=== PATIENT | female | born 1955 | race Caucasian/White ===

== ENCOUNTER → 2020-07-20 | Outpatient (CLI) | payer MEDICARE, OTHER ==
--- NOTE | 2020-07-20 09:04 | FL ---
EXAMINATION TYPE: FL UGI air DATE OF EXAM: 07/20/2020 COMPARISON: NONE HISTORY: Abdominal bloating, worse after eating TECHNIQUE: A double contrast UGI study is performed. FINDINGS: The esophagus shows normal motility and emptying into the stomach. No evidence of stricture noted. N o hiatal hernia. The stomach shows normal distensibility, peristalsis, and mucosal folds. No evidence of any mass or ulcer disease. Moderate spontaneous gastroesophageal reflux was seen throughout performance of this s tudy. The duodenal bulb, sweep, and proximal small bowel loops are unremarkable. Total fluoroscopy time 2 minutes 9 seconds. Total images 25. IMPRESSION: 1. Moderate spontaneous gastroesophageal reflux. 2. No hiatal hernia.
--- NOTE | 2020-07-20 15:36 | NM ---
EXAMINATION TYPE: NM hepatobiliary w CCK DATE OF EXAM: 07/20/2020 COMPARISON: NONE HISTORY: Right upper quadrant pain TECHNIQUE: After the intravenous administration of 5.13 mCi Tc 99m Mebrofenin hepatobiliary scintigra phy is performed. Immediate images post injection. FINDINGS: There is satisfactory initial accumulation of tracer by the liver. The gallbladder is visualized wit hin 30 minutes. The small bowel activity is noted within 15 minutes. At one hour 8 ounces oral ensu re was administered and gallbladder ejection fraction is calculated at 91 %, above the upper limit of the normal range. Therefore there is no scintigraphic evidence of cystic or common bile duct obstru ction to suggest acute cholecystitis or gallbladder dyskinesia. IMPRESSION: Findings could represent hyperdynamic gallbladder.
== END | disposition home or self-care (01) ==
LOC: RADFLMAIN 07:54
PROVIDERS: ATTEND Family Medicine
DX: K21.9 Gastro-esophageal reflux disease without esophagitis (principal); R10.11 Right upper quadrant pain
CPT/HCPCS: 74246; 78226; A9537

== ENCOUNTER → 2020-09-03 | Outpatient (CLI) | payer MEDICARE, OTHER ==
--- NOTE | 2020-09-03 11:47 | CT ---
EXAMINATION TYPE: CT abdomen pelvis w con DATE OF EXAM: 09/03/2020 COMPARISON: None HISTORY: Diverticulitis CT DLP: 1463 mGycm CONTRAST: CT scan of the abdomen and pelvis is performed with Oral Contrast and with IV Contrast, patient injec angelika with 100 ml mL of Isovue 300. FINDINGS: LUNG BASES-: No visible nodule. No infiltrate. Tiny sliding-type hiatal hernia. LIVER/GB: No calcified gallstones. No space occupying hepatic lesion. Biliary tree is of normal ca liber. PANCREAS: No inflammation. No distinct mass. SPLEEN: No splenic enlargement. No lesion seen. ADRENALS: No nodule. No thickening. KIDNEYS/BLADDER: No hydronephrosis. No nephrolithiasis. No distinct renal mass. Urinary bladder g rossly unremarkable. BOWEL: Normal appendix. Normal bowel caliber. No inflammation. No evidence for diverticulitis. GENITAL ORGANS: Lobulated appearance of the uterus compatible with the underlying leiomyomatous olvera ge. No evidence for adnexal mass. LYMPH NODES: No greater than 1cm abdominal or pelvic lymph nodes are appreciated. AORTA: No significant abnormality. OSSEOUS STRUCTURES: No significant abnormality is seen. OTHER: No significant additional abnormality is seen. IMPRESSION: 1. No acute process seen. 2. Suspect leiomyomatous change of the uterus. This can be confirmed with ultrasound of the pelvis.
== END | disposition home or self-care (01) ==
LOC: RADCTMAIN 09:45
PROVIDERS: ATTEND Surgery Plastic and Reconstructive Surgery
DX: K57.92 Diverticulitis of intestine, part unspecified, without perforation or abscess without bleeding (principal)
CPT/HCPCS: 82565; 84520; 74177; 36415; Q9967

== ENCOUNTER 2020-09-19 08:26 | Day surgery (SDC) | payer MEDICARE, OTHER ==
[2020-09-17 09:14] VITALS: BMI 39.0
[~2020-09-19 08:26] MED LIST: LACTATED RINGERS 1,000 ML IV SCH
--- NOTE | 2020-09-19 08:43 | P.GSHP ---
History of Present Illness H&P Date: 09/19/20 CHIEF COMPLAINT: GERD HISTORY OF PRESENT ILLNESS: The patient is a 64-year-old female who presents reports gastroesophageal reflux disease. Upper endoscopy was offered for further evaluation and management. PAST MEDICAL HISTORY: Please see list. PAST SURGICAL HISTORY: Please see list. MEDICATIONS: Please see list. ALLERGIES: Please see list. SOCIAL HISTORY: No illicit drug use FAMILY HISTORY: No reports of Crohn disease or ulcerative colitis. REVIEW OF ORGAN SYSTEMS: CONSTITUTIONAL: No reports of fevers or chills. GI: Denies any blood in stools or constipation. PHYSICAL EXAM: VITAL SIGNS: Stable GENERAL: Well-developed and pleasant in no acute distress. HEENT: No scleral icterus. Extraocular movements grossly intact. Moist buccal mucosa. NECK: Supple without lymphadenopathy. CHEST: Unlabored respirations. Equal bilateral excursions. CARDIOVASCULAR: Regular rate and rhythm. Distal 2+ pulses. ABDOMEN: Soft, nondistended. MUSCULOSKELETAL: No clubbing, cyanosis, or edema. ASSESSMENT: 1. Gastroesophageal reflux disease PLAN: 1. Recommend proceeding with an upper endoscopy Past Medical History Additional Past Medical History / Comment(s): "STOMACH ISSUES" History of Any Multi-Drug Resistant Organisms: None Reported Past Surgical History: No Surgical Hx Reported Past Anesthesia/Blood Transfusion Reactions: No Reported Reaction Additional Past Anesthesia/Blood Transfusion Reaction / Comment(s): NO PRIOR ANESTHESIA Smoking Status: Never smoker - Past Family History Mother Family Medical History: No Reported History Medications and Allergies Home Medications Medication Instructions Recorded Confirmed Type No Known Home Medications 09/17/20 09/17/20 History Allergies Allergy/AdvReac Type Severity Reaction Status Date / Time No Known Allergies Allergy Verified 09/19/20 08:41
[2020-09-19 08:47] VITALS: RESP 16; TEMP 97.6
[2020-09-19] MEDS ORDERED: LIDOCAINE 1% (10MG/ML) FOR IV START INTRADERMA ONE (09:00)
[2020-09-19] MEDS ORDERED: LIDOCAINE 1% INJ 10MG/ML (20 ML MDV) ONE (09:21)
[2020-09-19] MEDS ORDERED: MIDAZOLAM 2 MG/2 ML VIAL ONE (09:21)
[2020-09-19] MEDS ORDERED: PROPOFOL 10 MG/ML 20 ML VIAL IV ONE (09:21)
--- NOTE | 2020-09-19 09:42 | P.PCN ---
Date of Procedure: 09/19/20 Description of Procedure: PREOPERATIVE DIAGNOSIS: Gastroesophageal reflux disease. Epigastric abdominal pain POSTOPERATIVE DIAGNOSIS: Gastroesophageal reflux disease. Epigastric abdominal pain Gastritis. OPERATION: Esophagogastroduodenoscopy with biopsies along antrum. SURGEON: Zoë Martinez MD ANESTHESIA: MAC. INDICATIONS: The patient is a 64-year-old female who presents with a history of reflux disease. Benefits and risks of the procedure were described. Informed consent was obtained. DESCRIPTION: The patient was brought into the endoscopy suite and laid in the left lateral decubitus position. An Olympus gastroscope was passed along the posterior oropharynx down to the distal esophagus where the squamocolumnar junction was encountered at 35 cm from the incisors. The stomach was entered and no bile reflux was found. Additional findings are listed below. Biopsies with cold forceps were obtained of the antrum. The first through third portion of the duodenum was examined and unremarkable. Retroflexion of the scope confirmed Hill grade 3 lower esophageal valve. The squamocolumnar junction demonstrated LA grade B erosive esophagitis. The stomach was desufflated. The patient tolerated the procedure well. FINDINGS: Squamocolumnar junction 35 cm from the incisors. Diaphragmatic hiatus at 35 cm. Hill grade 3 lower esophageal valve. LA grade B erosive esophagitis. No active duodenitis. Chronic gastritis, mild RECOMMENDATIONS: Upper endoscopy as needed. Trial omeprazole 20 mg daily Plan - Discharge Summary Discharge Rx Participant: No New Discharge Prescriptions: New Omeprazole [PriLOSEC] 20 mg PO DAILY #14 cap Continue Gabapentin [Neurontin] 1 tab PO BID Discharge Medication List Gabapentin [Neurontin] 1 tab PO BID 09/19/20 [History] Omeprazole [PriLOSEC] 20 mg PO DAILY #14 cap 09/19/20 [Rx] Follow up Appointment(s)/Referral(s): Zoë Martinez MD [STAFF PHYSICIAN] - 10/02/20 Patient Instructions/Handouts: Gastroesophageal Reflux Disease (ED) Discharge Disposition: HOME SELF-CARE
[2020-09-19 10:05] VITALS: BP 118/78; PULSE 63
== END 2020-09-19 10:35 | disposition home or self-care (01) ==
LOC: ORWHC2ENDO 08:26
PROVIDERS: ATTEND Surgery Plastic and Reconstructive Surgery
DX: K29.50 Unspecified chronic gastritis without bleeding (principal); K22.10 Ulcer of esophagus without bleeding; Z79.899 Other long term (current) drug therapy; Z97.2 Presence of dental prosthetic device (complete) (partial)
CPT/HCPCS: 88305; 43239; J2250; J2704; J2001

== ENCOUNTER 2021-07-27 14:32 | Inpatient (IN) | payer MEDICARE, OTHER ==
[2021-07-27] MEDS ORDERED: PANTOPRAZOLE 40 MG/10 ML VIAL IVP STA (16:18)
[2021-07-27] MEDS ORDERED: SODIUM CHLORIDE 0.9% 1,000 ML IV STA (16:18)
[2021-07-27] MEDS ORDERED: MORPHINE SULFATE 4 MG/ML SYRINGE IV STA (16:18)
[2021-07-27] MEDS ORDERED: ONDANSETRON 4 MG/2 ML VIAL IVP STA (16:18)
--- NOTE | 2021-07-27 16:24 | ED ---
General Adult HPI - General Chief complaint: GI Bleed Stated complaint: Abd Pain Time Seen by Provider: 07/27/21 16:07 Source: patient Mode of arrival: ambulatory Limitations: no limitations - History of Present Illness Initial comments: 65-year-old female without any significant past medical history presents to the emergency room for severe abdominal pain. Patient reports she has had abdominal pain for weeks now. States it is all over her abdomen. Patient states she hasn't had a few episodes of dark bloody bowel movements. She also has diarrhea . Patient also has had some vomiting that she believes may have been streaked with blood. She did try to call her PCP and they recommended she come to the emergency room as they could not get her in until a couple weeks from now. Patient has not had fevers or chills.Patient has no other complaints at this time including shortness of breath, chest pain, headache, or visual changes. - Related Data Home Medications Medication Instructions Recorded Confirmed No Known Home Medications 07/27/21 07/27/21 Allergies Allergy/AdvReac Type Severity Reaction Status Date / Time No Known Allergies Allergy Verified 07/27/21 18:50 Review of Systems ROS Statement: Those systems with pertinent positive or pertinent negative responses have been documented in the HPI. ROS Other: All systems not noted in ROS Statement are negative. Past Medical History Past Medical History: No Reported History History of Any Multi-Drug Resistant Organisms: None Reported Past Surgical History: No Surgical Hx Reported Past Psychological History: No Psychological Hx Reported Smoking Status: Never smoker Past Alcohol Use History: None Reported Past Drug Use History: None Reported General Exam Limitations: no limitations General appearance: alert, in no apparent distress Head exam: Present: atraumatic Eye exam: Present: normal appearance, PERRL, EOMI. Absent: scleral icterus, conjunctival injection ENT exam: Present: normal exam, mucous membranes moist Neck exam: Present: normal inspection, full ROM. Absent: tenderness Respiratory exam: Present: normal lung sounds bilaterally. Absent: respiratory distress, wheezes Cardiovascular Exam: Present: regular rate, normal rhythm, normal heart sounds GI/Abdominal exam: Present: soft, tenderness (generalized abdominal tenderness), normal bowel sounds. Absent: distended Neurological exam: Present: alert Course Vital Signs 07/27/21 07/27/21 07/27/21 14:36 15:43 18:00 Temperature 97.8 F Pulse Rate 104 H 89 84 Respiratory 22 18 16 Rate Blood Pressure 141/91 147/99 152/88 O2 Sat by Pulse 97 95 97 Oximetry Medical Decision Making - Medical Decision Making Vitals are stable. Patient is well-appearing. Physical exam does reveal mild generalized abdominal tenderness. CBC does reveal leukocytosis of 15.4. Hemoconcentration is noted. CMP did reveal acute kidney injury likely from dehydration as she has not been eating or drinking with this abdominal pain for the past few weeks. She also has evidence of urinary tract infection. Was s tarted on Rocephin. CT abdomen and pelvis did reveal dilated endometrial cavity that appears new compared to the old exam, tumor is possible. I did discuss this case with Dr. Boggs who is on-call for [employer]. He does recommend ultrasound but states this would be better followed up outpatient. He states getting the ultrasound tomorrow after getting some antibiotics might be best for patient. She will otherwise be admitted to medicine for SARAH, UTI, abdominal pain. Dr. Fraser did request consultation to Dr. Boggs. He also requested doing an ultrasound tomorrow of the kidney ureter bladder. - Lab Data Result diagrams: 07/27/21 16:19 07/27/21 16:19 Lab Results 07/27/21 07/27/21 07/27/21 Range/Units 16:19 16:19 16:19 WBC 15.4 H (3.8-10.6) k/uL RBC 5.97 H (3.80-5.40) m/uL Hgb 16.6 H (11.4-16.0) gm/dL Hct 50.3 H (34.0-46.0) % MCV 84.3 (80.0-100.0) fL MCH 27.7 (25.0-35.0) pg MCHC 32.9 (31.0-37.0) g/dL RDW 13.5 (11.5-15.5) % Plt Count 477 H (150-450) k/uL MPV 7.2 Neutrophils % 80 % Lymphocytes % 13 % Monocytes % 6 % Eosinophils % 0 % Basophils % 0 % Neutrophils # 12.3 H (1.3-7.7) k/uL Lymphocytes # 2.0 (1.0-4.8) k/uL Monocytes # 0.9 (0-1.0) k/uL Eosinophils # 0.1 (0-0.7) k/uL Basophils # 0.1 (0-0.2) k/uL Sodium 137 (137-145) mmol/L Potassium 4.2 (3.5-5.1) mmol/L Chloride 90 L (98-107) mmol/L Carbon Dioxide 23 (22-30) mmol/L Anion Gap 24 mmol/L BUN 78 H (7-17) mg/dL Creatinine 2.79 H (0.52-1.04) mg/dL Est GFR (CKD-EPI)AfAm 20 (>60 ml/min/1.73 sqM) Est GFR (CKD-EPI)NonAf 17 (>60 ml/min/1.73 sqM) Glucose 120 H (74-99) mg/dL Plasma Lactic Acid Ronald 2.0 (0.7-2.0) mmol/L Calcium 10.6 H (8.4-10.2) mg/dL Total Bilirubin 0.8 (0.2-1.3) mg/dL AST 32 (14-36) U/L ALT 24 (4-34) U/L Alkaline Phosphatase 139 H (38-126) U/L Total Protein 9.0 H (6.3-8.2) g/dL Albumin 5.1 H (3.5-5.0) g/dL Amylase 72 (30-110) U/L Lipase 179 (23-300) U/L Urine Color Urine Appearance (Clear) Urine pH (5.0-8.0) Ur Specific [place] (1.001-1.035) Urine Protein (Negative) Urine Glucose (UA) (Negative) Urine Ketones (Negative) Urine Blood (Negative) Urine Nitrite (Negative) Urine Bilirubin (Negative) Urine Urobilinogen (<2.0) mg/dL Ur Leukocyte Esterase (Negative) Urine RBC (0-5) /hpf Urine WBC (0-5) /hpf Urine WBC Clumps (None) /hpf Ur Squamous Epith Cells (0-4) /hpf Hyaline Casts (0-2) /lpf Urine Mucus (None) /hpf Ur Yeast w Hyphae (None) /hpf Urine Yeast (Budding) (None) /hpf Stool Occult Blood (Negative) Coronavirus (PCR) (Not Detectd) 07/27/21 07/27/21 07/27/21 Range/Units 16:33 17:17 18:00 WBC (3.8-10.6) k/uL RBC (3.80-5.40) m/uL Hgb (11.4-16.0) gm/dL Hct (34.0-46.0) % MCV (80.0-100.0) fL MCH (25.0-35.0) pg MCHC (31.0-37.0) g/dL RDW (11.5-15.5) % Plt Count (150-450) k/uL MPV Neutrophils % % Lymphocytes % % Monocytes % % Eosinophils % % Basophils % % Neutrophils # (1.3-7.7) k/uL Lymphocytes # (1.0-4.8) k/uL Monocytes # (0-1.0) k/uL Eosinophils # (0-0.7) k/uL Basophils # (0-0.2) k/uL Sodium (137-145) mmol/L Potassium (3.5-5.1) mmol/L Chloride (98-107) mmol/L Carbon Dioxide (22-30) mmol/L Anion Gap mmol/L BUN (7-17) mg/dL Creatinine (0.52-1.04) mg/dL Est GFR (CKD-EPI)AfAm (>60 ml/min/1.73 sqM) Est GFR (CKD-EPI)NonAf (>60 ml/min/1.73 sqM) Glucose (74-99) mg/dL Plasma Lactic Acid Ronald (0.7-2.0) mmol/L Calcium (8.4-10.2) mg/dL Total Bilirubin (0.2-1.3) mg/dL AST (14-36) U/L ALT (4-34) U/L Alkaline Phosphatase (38-126) U/L Total Protein (6.3-8.2) g/dL Albumin (3.5-5.0) g/dL Amylase (30-110) U/L Lipase (23-300) U/L Urine Color Yellow Urine Appearance Cloudy H (Clear) Urine pH 5.0 (5.0-8.0) Ur Specific [place] 1.017 (1.001-1.035) Urine Protein 1+ H (Negative) Urine Glucose (UA) Negative (Negative) Urine Ketones 1+ H (Negative) Urine Blood Large H (Negative) Urine Nitrite Negative (Negative) Urine Bilirubin 1+ H (Negative) Urine Urobilinogen 2.0 (<2.0) mg/dL Ur Leukocyte Esterase Large H (Negative) Urine RBC 91 H (0-5) /hpf Urine WBC >182 H (0-5) /hpf Urine WBC Clumps Moderate H (None) /hpf Ur Squamous Epith Cells 3 (0-4) /hpf Hyaline Casts 371 H (0-2) /lpf Urine Mucus Many H (None) /hpf Ur Yeast w Hyphae Few (None) /hpf Urine Yeast (Budding) Occasional H (None) /hpf Stool Occult Blood Negative (Negative) Coronavirus (PCR) Not Detected (Not Detectd) Disposition Clinical Impression: Leukocytosis, UTI (urinary tract infection), Abdominal pain, SARAH (acute kidney injury) Disposition: ADMITTED IP TO THIS HOSP Is patient prescribed a controlled substance at d/c from ED?: No Referrals: Elijah Rivera DO [Primary Care Provider] - 1-2 days Time of Disposition: 19:00
[2021-07-27 16:42] LABS: Albumin 5.1 g/dL (3.5-5.0); Calcium 10.6 mg/dL (8.4-10.2); Potassium 4.2 mmol/L (3.5-5.1); Total Bilirubin 0.8 mg/dL (0.2-1.3)
[2021-07-27 16:48] LABS: Basophils # (A) 0.1 k/uL (0-0.2); Basophils % (A) 0 %; Eosinophils # (A) 0.1 k/uL (0-0.7); Eosinophils % (A) 0 %; HCT 50.3 % (34.0-46.0); HGB 16.6 gm/dL (11.4-16.0); Lymphocytes % (A) 13 %; MCH 27.7 pg (25.0-35.0); MCHC 32.9 g/dL (31.0-37.0); MCV 84.3 fL (80.0-100.0); Mean Platelet Volume 7.2; Monocytes # (A) 0.9 k/uL (0-1.0); Monocytes % (A) 6 %; Neutrophils # (A) 12.3 k/uL (1.3-7.7); Neutrophils % (A) 80 %; Platelet Count 477 k/uL (150-450); RBC 5.97 m/uL (3.80-5.40); RDW 13.5 % (11.5-15.5); WBC 15.4 k/uL (3.8-10.6)
[2021-07-27 16:52] LABS: Appearance,Urine Cloudy (Clear); Bilirubin,Urine 1+ (Negative); Blood,Urine Large (Negative); Budding Yeast,Urine Occasional /hpf; Color,Urine Yellow; Glucose,Urine (UA) Negative (Negative); Hyaline Casts,Urine 371 /lpf (0-2); Hyphae Yeast, Urine Few /hpf; Ketones,Urine 1+ (Negative); Leukocyte Esterase,Urine Large (Negative); Mucus,Urine Many /hpf; Nitrite,Urine Negative (Negative); Protein,Urine 1+ (Negative); RBC,Urine 91 /hpf (0-5); Specific Gravity,Urine 1.017 (1.001-1.035); Squamous Epithelial Cell,Urine 3 /hpf (0-4); WBC,Urine >182 /hpf (0-5)
--- NOTE | 2021-07-27 17:32 | CT ---
EXAMINATION TYPE: CT abdomen pelvis wo con DATE OF EXAM: 07/27/2021 COMPARISON: 09/03/2020 HISTORY: Abdominal pain. No contrast. GFR 17 CT DLP: 591 mGycm Automated exposure control for dose reduction was used. Images obtained from the diaphragm to the floor the pelvis with no contrast. Lung bases are clear. There is no pleural effusion. Heart size is normal. There is no pericardial eff usion. Liver spleen stomach pancreas appear intact. The bile ducts are nondilated. Gallbladder is lar ge and measures 4.4 cm in diameter. There is no adrenal mass. Kidneys have normal size. There is no hydronephrosis. There is no retroperi toneal adenopathy. There is no inguinal hernia. There is no free fluid in the pelvis. There is irregu lar enlargement of the uterus. There is apparent 4.5 cm uterine fundal fibroid. There is low attenuat ion in the large area of the body of the uterus. It is suggestive of dilated endometrial cavity. Blad aurelia distends smoothly. Appendix is posterior and appears normal. Lumbar vertebra have normal alignment. Posterior elements are intact. There is no compression fractur e. Bony pelvis is intact. The hip joints are intact. IMPRESSION: There is dilated endometrial cavity that appears new compared to old exam. Tumor is possible. Follow- up is recommended. Ultrasound would be helpful for further evaluation. Uterine fundal fibroid unchang ed compared to old exam. Large gallbladder appears increased compared to old exam. This is suggestive of gallbladder dysfunction.
[2021-07-27] MEDS ORDERED: cefTRIAXone IN SWFI 1,000 MG/10 ML SYRINGE IVP STA (18:11)
[2021-07-27] MEDS ORDERED: NALOXONE 0.4 MG/ML 1 ML VIAL IV PRN (19:00)
[2021-07-27] MEDS: SODIUM CHLORIDE 0.9% 1,000 ML IV SCH (19:00)
[2021-07-27] MEDS ORDERED: ONDANSETRON 4 MG/2 ML VIAL IVP PRN (19:00)
[2021-07-27] MEDS: MORPHINE SULFATE 4 MG/ML SYRINGE IV PRN (19:16)
[2021-07-28] MEDS: MORPHINE SULFATE 4 MG/ML SYRINGE IV PRN ×3 (00:09→14:12)
[2021-07-28] MEDS: SODIUM CHLORIDE 0.9% 1,000 ML IV SCH ×3 (04:12→18:25)
[2021-07-28] MEDS ORDERED: cefTRIAXone IN SWFI 1,000 MG/10 ML SYRINGE IVP SCH (09:00)
--- NOTE | 2021-07-28 11:42 | P.OBCN ---
History of Present Illness Consult date: 07/28/21 Reason for consult: other (Vaginal bleeding, thickened endometrium) Chief complaint: Abdominal pain History of present illness: The patient is a 65-year-old 1 para 1001 who presented to the emergency room yesterday with complaint of approximately 3 weeks of primarily upper abdominal pain which has now spread to breast-feed her abdomen is well. She also reports having had several weeks to a month's worth of bleeding either from the vagina or the rectum though she is uncertain which. In the emergency room, she was found to have renal dysfunction and ultrasound demonstrates abnormal findings of the gallbladder. She additionally was found to have what appears to be a fairly significant bladder infection. Computed tomography scan and subsequent ultrasound of also demonstrated a significantly thickened endometrial cavity measuring approximate 5 cm in thickness. This is a change from previous documentation by computed tomography scan done in the past. The patient denies any significant weight loss or weight gain. She has never used hormone replacement nor oral contraceptive pills since the time of menopause at approximately age 48. This is the first episode of bleeding that she's had since that time though, again, she is uncertain as to whether it is vaginal or rectal. Obstetrical history: 1 para 101 with 1 term vaginal delivery without complications. Gynecologic history: Unremarkable with no history of any infections. She does report that she has had relatively regular gynecologic care though not recently. She could not be more specific than to say through [facility]. Review of Systems Review of systems is confined to history of present illness. Past Medical History Past Medical History: No Reported History History of Any Multi-Drug Resistant Organisms: None Reported Past Surgical History: No Surgical Hx Reported Past Psychological History: No Psychological Hx Reported Smoking Status: Never smoker Past Alcohol Use History: None Reported Past Drug Use History: None Reported - Past Family History Father Family Medical History: Unable to Obtain Mother Family Medical History: No Reported History Medications and Allergies Home Medications Medication Instructions Recorded Confirmed Type No Known Home Medications 07/27/21 07/27/21 History Allergies Allergy/AdvReac Type Severity Reaction Status Date / Time No Known Allergies Allergy Verified 07/27/21 18:50 Exam Vital Signs Temp Pulse Pulse Resp BP BP Pulse Ox 07/28/21 07:00 98.2 F 64 17 124/68 97 07/28/21 04:55 97.7 F 64 18 111/68 98 07/28/21 04:15 64 18 123/61 96 07/27/21 22:00 78 18 132/64 97 07/27/21 18:00 84 16 152/88 97 07/27/21 15:43 89 18 147/99 95 07/27/21 14:36 97.8 F 104 H 22 141/91 97 Intake and Output 07/27/21 07/28/21 07/28/21 22:59 06:59 14:59 Other: Voiding Method Toilet # Voids 0 Weight 80.15 kg In general, this is a well-developed, well-nourished white female in no acute distress. She does appear to be slightly confused. Her heart has a regular rhythm and rate without murmur. Her lungs are clear to auscultation bilaterally in all young. Her abdomen is nondistended, soft, with mild diffuse tenderness more significant in the upper quadrants than the lower. There is no guarding or rebound present. The patient declines bimanual pelvic examination this time secondary to discomfort with previous exam and on transvaginal pelvic ultrasound. I will return at another time to attempt to perform a pelvic examination as it would be beneficial to at least see if the blood is vaginal in origin. Results Result Diagrams: 07/27/21 16:19 07/27/21 16:19 Abnormal Lab Results - Last 24 Hours (Table) 07/27/21 07/27/21 07/27/21 Range/Units 16:19 16:19 16:33 WBC 15.4 H (3.8-10.6) k/uL RBC 5.97 H (3.80-5.40) m/uL Hgb 16.6 H (11.4-16.0) gm/dL Hct 50.3 H (34.0-46.0) % Plt Count 477 H (150-450) k/uL Neutrophils # 12.3 H (1.3-7.7) k/uL Chloride 90 L (98-107) mmol/L BUN 78 H (7-17) mg/dL Creatinine 2.79 H (0.52-1.04) mg/dL Glucose 120 H (74-99) mg/dL Calcium 10.6 H (8.4-10.2) mg/dL Alkaline Phosphatase 139 H (38-126) U/L Total Protein 9.0 H (6.3-8.2) g/dL Albumin 5.1 H (3.5-5.0) g/dL Urine Appearance Cloudy H (Clear) Urine Protein 1+ H (Negative) Urine Ketones 1+ H (Negative) Urine Blood Large H (Negative) Urine Bilirubin 1+ H (Negative) Ur Leukocyte Esterase Large H (Negative) Urine RBC 91 H (0-5) /hpf Urine WBC >182 H (0-5) /hpf Urine WBC Clumps Moderate H (None) /hpf Hyaline Casts 371 H (0-2) /lpf Urine Mucus Many H (None) /hpf Urine Yeast (Budding) Occasional H (None) /hpf Assessment and Plan (1) Postmenopausal bleeding Current Visit: Yes Status: Acute Code(s): N95.0 - POSTMENOPAUSAL BLEEDING SNOMED Code(s): 95417900 (2) Thickened endometrium Current Visit: Yes Status: Acute Code(s): R93.89 - ABNORMAL FINDINGS ON DX IMAGING OF OTH BODY STRUCTURES SNOMED Code(s): 283232857 Plan: The endometrial findings warrant evaluation with biopsy. This is most easily carried out in the outpatient office setting. As the patient appears entirely hemodynamically stable, I would recommend having her follow up in my office following discharge for further disposition. Given some of her other ongoing medical concerns, I would currently not recommend proceeding with D&C at this time. If, however, she required surgical evaluation for other reasons such as acute ongoing gallbladder issues, then D&C could be performed under the same anesthetic. Thank you for the consult and I will continue to follow at a distance unless surgical intervention becomes necessary.
--- NOTE | 2021-07-28 12:46 | P.GSCN ---
History of Present Illness Consult date: 07/28/21 Reason for Consult: Abdominal pain, dilated gallbladder on CT History of present illness: The patient is a 65-year-old female who has had about a 1 month history of generalized abdominal pain. She does not feel like eating. Loss of appetite. Occasionally has had some vomiting recently. Denies fevers or chills. She is also began having vaginal bleeding. The last week symptoms have gotten worse and she called her primary care who sent her to the ER. No fevers or chills. No jaundice, acholic stool, tea colored urine. No prior gallbladder attacks. Will have some constipation. Then bowels do move she will have significant large bowel movements with large volumes throughout the day. Bowel movements are soft. Reviewing reports from [facility] she had a Pap smear in May 2020 which was negative. June 2020 she had stool studies due to diarrhea it was Hemoccult negative, C. difficile negative and cultures were negative. Last colonoscopy was done by Dr. Hernandez in 2013. February 2020 she had a gallbladder ultrasound showing no stones and a possible polyp. HIDA scan was done in July 2020 showing 91% ejection fraction. She also had a EGD done in September 2020 showing some GERD Review of Systems All systems: negative Past Medical History Past Medical History: No Reported History History of Any Multi-Drug Resistant Organisms: None Reported Past Surgical History: No Surgical Hx Reported Past Psychological History: No Psychological Hx Reported Smoking Status: Never smoker Past Alcohol Use History: None Reported Past Drug Use History: None Reported - Past Family History Father Family Medical History: Unable to Obtain Mother Family Medical History: No Reported History Medications and Allergies Home Medications Medication Instructions Recorded Confirmed Type No Known Home Medications 07/27/21 07/27/21 History Allergies Allergy/AdvReac Type Severity Reaction Status Date / Time No Known Allergies Allergy Verified 07/27/21 18:50 Surgical - Exam Osteopathic Statement: *. No significant issues noted on an osteopathic structural exam other than those noted in the History and Physical/Consult. Vital Signs Temp Pulse Resp BP Pulse Ox 97.8 F 104 H 22 141/91 97 07/27/21 14:36 07/27/21 14:36 07/27/21 14:36 07/27/21 14:36 07/27/21 14:36 - General well developed, well nourished - Eyes normal ocular movement - Neck trachea midline - Respiratory normal respiratory effort, clear to auscultation - Cardiovascular Rhythm: regular - Abdomen Abdomen: soft, tender (mild diffuse), no guarding, no rigid, no rebound Hernia: no umbilical - Psychiatric oriented to time, oriented to person, oriented to place, speech is normal, memory intact Results - Labs 07/27/21 16:19 07/27/21 16:19 Abnormal Lab Results - Last 24 Hours (Table) 07/27/21 07/27/21 07/27/21 Range/Units 16:19 16:19 16:33 WBC 15.4 H (3.8-10.6) k/uL RBC 5.97 H (3.80-5.40) m/uL Hgb 16.6 H (11.4-16.0) gm/dL Hct 50.3 H (34.0-46.0) % Plt Count 477 H (150-450) k/uL Neutrophils # 12.3 H (1.3-7.7) k/uL Chloride 90 L (98-107) mmol/L BUN 78 H (7-17) mg/dL Creatinine 2.79 H (0.52-1.04) mg/dL Glucose 120 H (74-99) mg/dL Calcium 10.6 H (8.4-10.2) mg/dL Alkaline Phosphatase 139 H (38-126) U/L Total Protein 9.0 H (6.3-8.2) g/dL Albumin 5.1 H (3.5-5.0) g/dL Urine Appearance Cloudy H (Clear) Urine Protein 1+ H (Negative) Urine Ketones 1+ H (Negative) Urine Blood Large H (Negative) Urine Bilirubin 1+ H (Negative) Ur Leukocyte Esterase Large H (Negative) Urine RBC 91 H (0-5) /hpf Urine WBC >182 H (0-5) /hpf Urine WBC Clumps Moderate H (None) /hpf Hyaline Casts 371 H (0-2) /lpf Urine Mucus Many H (None) /hpf Urine Yeast (Budding) Occasional H (None) /hpf Microbiology - Last 24 Hours (Table) 07/27/21 16:33 Urine Culture - Preliminary Urine,Voided Diabetes panel 07/27/21 Range/Units 16:19 Sodium 137 (137-145) mmol/L Potassium 4.2 (3.5-5.1) mmol/L Chloride 90 L (98-107) mmol/L Carbon Dioxide 23 (22-30) mmol/L BUN 78 H (7-17) mg/dL Creatinine 2.79 H (0.52-1.04) mg/dL Glucose 120 H (74-99) mg/dL Calcium 10.6 H (8.4-10.2) mg/dL AST 32 (14-36) U/L ALT 24 (4-34) U/L Alkaline Phosphatase 139 H (38-126) U/L Total Protein 9.0 H (6.3-8.2) g/dL Albumin 5.1 H (3.5-5.0) g/dL Calcium panel 07/27/21 Range/Units 16:19 Calcium 10.6 H (8.4-10.2) mg/dL Albumin 5.1 H (3.5-5.0) g/dL Pituitary panel 07/27/21 Range/Units 16:19 Sodium 137 (137-145) mmol/L Potassium 4.2 (3.5-5.1) mmol/L Chloride 90 L (98-107) mmol/L Carbon Dioxide 23 (22-30) mmol/L BUN 78 H (7-17) mg/dL Creatinine 2.79 H (0.52-1.04) mg/dL Glucose 120 H (74-99) mg/dL Calcium 10.6 H (8.4-10.2) mg/dL Adrenal panel 07/27/21 Range/Units 16:19 Sodium 137 (137-145) mmol/L Potassium 4.2 (3.5-5.1) mmol/L Chloride 90 L (98-107) mmol/L Carbon Dioxide 23 (22-30) mmol/L BUN 78 H (7-17) mg/dL Creatinine 2.79 H (0.52-1.04) mg/dL Glucose 120 H (74-99) mg/dL Calcium 10.6 H (8.4-10.2) mg/dL Total Bilirubin 0.8 (0.2-1.3) mg/dL AST 32 (14-36) U/L ALT 24 (4-34) U/L Alkaline Phosphatase 139 H (38-126) U/L Total Protein 9.0 H (6.3-8.2) g/dL Albumin 5.1 H (3.5-5.0) g/dL - Imaging CT scan - abdomen: report reviewed, image reviewed Assessment and Plan (1) SARAH (acute kidney injury) Current Visit: Yes Status: Acute Code(s): N17.9 - ACUTE KIDNEY FAILURE, UNSPECIFIED SNOMED Code(s): 05737100 (2) Abdominal pain Current Visit: Yes Status: Acute Code(s): R10.9 - UNSPECIFIED ABDOMINAL PAIN SNOMED Code(s): 29497144 (3) Leukocytosis Current Visit: Yes Status: Acute Code(s): D72.829 - ELEVATED WHITE BLOOD CELL COUNT, UNSPECIFIED SNOMED Code(s): 772437470 (4) Postmenopausal bleeding Current Visit: Yes Status: Acute Code(s): N95.0 - POSTMENOPAUSAL BLEEDING SNOMED Code(s): 25687832 (5) Thickened endometrium Current Visit: Yes Status: Acute Code(s): R93.89 - ABNORMAL FINDINGS ON DX IMAGING OF OTH BODY STRUCTURES SNOMED Code(s): 467701053 (6) UTI (urinary tract infection) Current Visit: Yes Status: Acute Code(s): N39.0 - URINARY TRACT INFECTION, SITE NOT SPECIFIED SNOMED Code(s): 05825077 Plan: I think symptoms that the patient is experiencing is more related to the urinary tract infection and endometrial enlargement with postmenopausal bleeding. She had previous gallbladder work-up in 2019 which was unremarkable. I recommend PPI for reflux and ulcer prophylaxis. Supportive care. I think some of her GI complaints may be due to the enlarged uterus pushing on the colon. Consider outpatient colonoscopy. I will follow-up as needed
--- NOTE | 2021-07-28 13:31 | US ---
EXAMINATION TYPE: US kidneys/renal and bladder DATE OF EXAM: 07/28/2021 COMPARISON: NONE CLINICAL HISTORY: SARAH. UTI, extreme abd pain EXAM MEASUREMENTS: Right Kidney: 8.6 x 3.8 x 3.8 cm Left Kidney: 9.3 x 3.8 x 3.7cm Right Kidney: limited imaging due to bowel gas and patients limited pain tolerance with any pressure, portions seen appear wnl Left Kidney: limited imaging due to bowel gas and patients limited pain tolerance with any pressure, portions seen appear wnl Bladder: wnl There is no evidence for hydronephrosis at this point in time. No nephrolithiasis is seen. The urin joanne bladder is partially distended and anechoic. Bilateral ureteral jets are seen. There is gallbladder sludge. Gallbladder wall measures 3 to 4 mm which is borderline though remains w ithin normal limit. No pericholecystic fluid. Gant's sign reported positive by the ultrasound techn ician. IMPRESSION: Limited evaluation without evidence for renal collecting system dilatation or calculi. Partially distended urinary bladder without significant abnormality. Gallbladder sludge.
--- NOTE | 2021-07-28 13:38 | US ---
EXAMINATION TYPE: US pelvic complete DATE OF EXAM: 07/28/2021 COMPARISON: NONE CLINICAL HISTORY: Abd pain, vaginal bleeding x 1 month, . Postmenopausal. TECHNIQUE: TA. Transabdominal sonographic images of the pelvis were acquired. Ultrasound technolo gist or transvaginal technique due to patient level of pain. Date of LMP: 15+yrs ago EXAM MEASUREMENTS: Uterus: 10.7 x 7.4 x 6.3 cm Endometrial Stripe: 3.5 cm Right Ovary: not seen Left Ovary: not seen 1. Uterus: Anteverted heterogeneous, fundal fibroid noted = 4.2 x 3.7 x 3.7cm 2. Endometrium: grossly thickened 3. Right Ovary: not seen due to bowel gas and transabdominal technique 4. Left Ovary: not seen due to bowel gas and transabdominal technique. 5. Bilateral Adnexa: Limited in evaluation due to transabdominal technique and bowel gas-grossly wit hin normal 6. Posterior cul-de-sac: wnl IMPRESSION: 1. FIGO classification-6 leiomyoma. 2. Thickening of the endometrial stripe measuring up to 3.5 cm-postmenopausal woman with vaginal blee ding this is abnormal in the differential diagnosis includes endometrial carcinoma, correlation with tissue sampling should be considered. 3. Nonvisualization of the adnexa and ovaries due to transabdominal technique.
--- NOTE | 2021-07-28 14:23 | P.HPIM ---
History of Present Illness H&P Date: 07/28/21 Chief Complaint: Abdominal discomfort This is a pleasant 65-year-old patient who follows with Dr. Rivera. Patient otherwise in good health. Up to about a month ago. Started noticing upper abdominal discomfort. It slowly progressed. Patient also started noticing vaginal bleeding progressively in emergently getting worse. Also had intermittent nausea. Intermittent fever. Occasionally. Poor appetite as per stay for last 2 weeks. Has lost some weight. No change in bowel pattern except for some constipation. Presented to the ER. Review of systems: GEN.: Decreased appetite and weight loss EYES: None HEENT: None NECK: None RESPIRATORY: None CARDIOVASCULAR: None GASTROINTESTINAL: Some constipation GENITOURINARY: None MUSCULOSKELETAL: None LYMPHATICS: None HEMATOLOGICAL: None PSYCHIATRY: None NEUROLOGICAL: None Past medical history to include: Unremarkable Social history: Lives with sister. No smoking or alcohol. Family history: Reviewed, noncontributory to presentation Physical examination: VITAL SIGNS: 97.7, 64, 18, 120/68, 97% room air GENERAL:. BMI 29.4, reclining in bed, awake, tired. EYES: Pupils equal. Conjunctiva normal. HEENT: External appearance of nose and ears normal, oral cavity grossly normal. NECK: JVD not raised; masses not palpable. HEART: First and second heart sounds are normal; no edema. LUNGS: Respiratory rate normal; clear to auscultation. ABDOMEN: Soft, diffuse tenderness, no guarding rigidity, liver spleen not palpable, no masses palpable. PSYCH: Alert and oriented x3; mood and affect normal. MUSCULAR skeletal: Evidence of mild OA NEUROLOGICAL: Cranial nerves grossly intact; no facial asymmetry, power and sensation grossly intact. LYMPHATICS: No lymph nodes palpable in the axilla and neck INVESTIGATIONS, reviewed in the clinical context: WBC 15.4 hemoglobin 16.6 platelets 477 potassium 4.2 sodium 137 BUN 78 creatinine 2.79 Alkaline phosphatase 139 UA positive for blood, leukoesterase, WBC, Stool occult blood negative Coronavirus [PCR]: Not detected Computed tomography scan abdomen pelvis without contrast: Gallbladder is enlarged at 4.4 cm. Ducts not dilated. A regular enlargement of the uterus. Uterine fibroid. Dilated endometrial cavity. Ultrasound kidney bladder: Right kidney imaging limited. No hydronephrosis reported. Gallbladder sludge. Gallbladder wall 3-4 mm. Pelvic ultrasound: Uterus anteverted. Fundal fibroid. Endometrium grossly thickened. Bilateral adnexa limited in evaluation. Assessment and plan: -This patient presents with 1 month of abdominal pain/discomfort. Has had poor appetite and weight loss. Abdominal computed tomography scan and ultrasound findings are nonspecific. Except we have a dilated uterus and a prominent endometrium. COOLING PAN TENDER consulted. Spoke to Dr. Boggs. She may want to see the patient as an outpatient -Acute kidney injury. Chronic component cannot be ruled out. UAs other mixed picture. IV fluids. Follow labs -Hypocalcemia likely from dehydration IV fluids -Acute UTI with cystitis IV ceftriaxone -Dysfunctional uterine bleeding in the setting of enlarged uterus and endometrium. Follow-up with COOLING PAN TENDER. Patient will be aggressively hydrated. Repeat labs in the morning. Care was discussed with Dr. Boggs. Dr. Calero. Also with the family at the bedside. Past Medical History Past Medical History: No Reported History History of Any Multi-Drug Resistant Organisms: None Reported Past Surgical History: No Surgical Hx Reported Past Psychological History: No Psychological Hx Reported Smoking Status: Never smoker Past Alcohol Use History: None Reported Past Drug Use History: None Reported - Past Family History Father Family Medical History: Unable to Obtain Mother Family Medical History: No Reported History Medications and Allergies Home Medications Medication Instructions Recorded Confirmed Type No Known Home Medications 07/27/21 07/27/21 History Allergies Allergy/AdvReac Type Severity Reaction Status Date / Time No Known Allergies Allergy Verified 07/27/21 18:50 Physical Exam Vitals: Vital Signs Temp Pulse Pulse Resp BP BP Pulse Ox 07/28/21 07:00 98.2 F 64 17 124/68 97 07/28/21 04:55 97.7 F 64 18 111/68 98 07/28/21 04:15 64 18 123/61 96 07/27/21 22:00 78 18 132/64 97 07/27/21 18:00 84 16 152/88 97 07/27/21 15:43 89 18 147/99 95 07/27/21 14:36 97.8 F 104 H 22 141/91 97 Intake and Output 07/27/21 07/28/21 07/28/21 22:59 06:59 14:59 Other: Voiding Method Toilet Toilet # Voids 0 Weight 80.15 kg Results CBC & Chem 7: 07/27/21 16:19 07/27/21 16:19 Labs: Abnormal Lab Results - Last 24 Hours (Table) 07/27/21 07/27/21 07/27/21 Range/Units 16:19 16:19 16:33 WBC 15.4 H (3.8-10.6) k/uL RBC 5.97 H (3.80-5.40) m/uL Hgb 16.6 H (11.4-16.0) gm/dL Hct 50.3 H (34.0-46.0) % Plt Count 477 H (150-450) k/uL Neutrophils # 12.3 H (1.3-7.7) k/uL Chloride 90 L (98-107) mmol/L BUN 78 H (7-17) mg/dL Creatinine 2.79 H (0.52-1.04) mg/dL Glucose 120 H (74-99) mg/dL Calcium 10.6 H (8.4-10.2) mg/dL Alkaline Phosphatase 139 H (38-126) U/L Total Protein 9.0 H (6.3-8.2) g/dL Albumin 5.1 H (3.5-5.0) g/dL Urine Appearance Cloudy H (Clear) Urine Protein 1+ H (Negative) Urine Ketones 1+ H (Negative) Urine Blood Large H (Negative) Urine Bilirubin 1+ H (Negative) Ur Leukocyte Esterase Large H (Negative) Urine RBC 91 H (0-5) /hpf Urine WBC >182 H (0-5) /hpf Urine WBC Clumps Moderate H (None) /hpf Hyaline Casts 371 H (0-2) /lpf Urine Mucus Many H (None) /hpf Urine Yeast (Budding) Occasional H (None) /hpf Microbiology - Last 24 Hours (Table) 07/27/21 16:33 Urine Culture - Preliminary Urine,Voided Thrombosis Risk Factor Assmnt - Choose All That Apply Any of the Below Risk Factors Present?: Yes Each Factor Represents 1 point: Obesity (BMI >25) Other Risk Factors: Yes Each Risk Factor Represents 2 Points: Age 61-74 years Other congenital or acquired thrombophilia - If yes, enter type in comment: No Thrombosis Risk Factor Assessment Total Risk Factor Score: 3 Thrombosis Risk Factor Assessment Level: Moderate Risk
[2021-07-29] MEDS: SODIUM CHLORIDE 0.9% 1,000 ML IV SCH ×3 (02:03→17:16)
[2021-07-29 07:14] LABS: African American GFR (CKD) 65 (>60 ml/min/1.73 sqM); Anion Gap 13 mmol/L; Blood Urea Nitrogen 40 mg/dL (7-17); Calcium 9.4 mg/dL (8.4-10.2); Carbon Dioxide 25 mmol/L (22-30); Chloride 104 mmol/L (98-107); Glucose 80 mg/dL (74-99); Non-African American GFR(CKD) 56 (>60 ml/min/1.73 sqM); Potassium 4.1 mmol/L (3.5-5.1); Sodium 142 mmol/L (137-145)
[2021-07-29 07:34] LABS: Basophils # (A) 0.1 k/uL (0-0.2); Basophils % (A) 1 %; Eosinophils # (A) 0.2 k/uL (0-0.7); Eosinophils % (A) 2 %; HCT 42.8 % (34.0-46.0); HGB 13.7 gm/dL (11.4-16.0); Lymphocytes # (A) 1.4 k/uL (1.0-4.8); Lymphocytes % (A) 15 %; MCH 28.2 pg (25.0-35.0); MCHC 32.1 g/dL (31.0-37.0); MCV 87.9 fL (80.0-100.0); Mean Platelet Volume 7.4; Monocytes # (A) 0.5 k/uL (0-1.0); Monocytes % (A) 5 %; Neutrophils # (A) 6.9 k/uL (1.3-7.7); Neutrophils % (A) 76 %; Platelet Count 348 k/uL (150-450); RBC 4.87 m/uL (3.80-5.40); RDW 13.5 % (11.5-15.5); WBC 9.1 k/uL (3.8-10.6)
[2021-07-29] MEDS: ACETAMINOPHEN TAB 500 MG TAB PO PRN (11:36)
--- NOTE | 2021-07-29 14:17 | P.PN ---
Subjective Progress Note Date: 07/29/21 Principal diagnosis: Abdominal pain The patient is seen on rounds. She continues to have diffuse abdominal pain. She is taking some clear liquids. In questioning her she did have ultrasound, HIDA and stool studies because of similar complaints last year. She's had a EGD. Dr. Hernandez did a colonoscopy in 2013 which the patient reports as normal. She was due for a repeat one in 10 years. Objective - Vital Signs Vital signs: Vital Signs Temp 97.7 F 07/29/21 01:54 Pulse 68 07/29/21 01:54 Resp 19 07/29/21 01:54 BP 134/72 07/29/21 01:54 Pulse Ox 94 L 07/29/21 01:54 Intake & Output 07/28/21 07/29/21 07/29/21 18:59 06:59 18:59 Intake Total 300 Balance 300 Intake: Oral 300 Other: Voiding Method Toilet Toilet # Voids 3 1 1 - Constitutional General appearance: Present: cooperative - Respiratory Respiratory: bilateral: CTA - Cardiovascular Rhythm: regular - Gastrointestinal General gastrointestinal: Present: normal bowel sounds, soft, tenderness (Diffuse tenderness to palpation, no tenderness to percussion). Absent: distended - Labs CBC & Chem 7: 07/29/21 06:02 07/29/21 06:02 Labs: Abnormal Lab Results - Last 24 Hours (Table) 07/29/21 Range/Units 06:02 BUN 40 H (7-17) mg/dL Microbiology - Last 24 Hours (Table) 07/27/21 18:09 Blood Culture - Preliminary Blood No Growth after 24 hours 07/27/21 18:00 Blood Culture - Preliminary Blood No Growth after 24 hours 07/27/21 16:33 Urine Culture - Preliminary Urine,Voided - Imaging and Cardiology US - abdomen: report reviewed Assessment and Plan (1) SARAH (acute kidney injury) Current Visit: Yes Status: Acute Code(s): N17.9 - ACUTE KIDNEY FAILURE, UNSPECIFIED SNOMED Code(s): 86488400 (2) Abdominal pain Current Visit: Yes Status: Acute Code(s): R10.9 - UNSPECIFIED ABDOMINAL PAIN SNOMED Code(s): 11321451 (3) Leukocytosis Current Visit: Yes Status: Acute Code(s): D72.829 - ELEVATED WHITE BLOOD C ELL COUNT, UNSPECIFIED SNOMED Code(s): 058946777 (4) Postmenopausal bleeding Current Visit: Yes Status: Acute Code(s): N95.0 - POSTMENOPAUSAL BLEEDING SNOMED Code(s): 51395784 (5) Thickened endometrium Current Visit: Yes Status: Acute Code(s): R93.89 - ABNORMAL FINDINGS ON DX IMAGING OF OTH BODY STRUCTURES SNOMED Code(s): 737757706 (6) UTI (urinary tract infection) Current Visit: Yes Status: Acute Code(s): N39.0 - URINARY TRACT INFECTION, SITE NOT SPECIFIED SNOMED Code(s): 98840822 Plan: The patient continues to have diffuse abdominal pain. This is similar to pain she had a year ago but is more pronounced. Ultrasound of abdomen and pelvis showed markedly thickened endometrium. Kidneys and ureters were not well visualized due to overlying bowel gas. Sludge in the gallbladder without convincing acute cholecystitis. Case was discussed with Dr. Fraser. She'll be hydrated and then computed tomography scan with oral and IV contrast will be performed. Control pain. Outpatient ASSURANCE OFFICER workup regarding the endometrial thickening and postmenopausal bleeding. Further recommendations to follow.
[2021-07-29] MEDS: HYDROmorphone 0.5 MG/0.5 ML SYRINGE IVP PRN ×2 (14:22→20:35)
--- NOTE | 2021-07-29 17:20 | P.PN ---
Progress Note - Text Progress Note Date: 07/29/21 Chief Complaint: Abdominal discomfort This is a pleasant 65-year-old patient who follows with Dr. Rivera. Patient otherwise in good health. Up to about a month ago. Started noticing upper abdominal discomfort. It slowly progressed. Patient also started noticing va ginal bleeding progressively in emergently getting worse. Also had intermittent nausea. Intermittent fever. Occasionally. Poor appetite as per stay for last 2 weeks. Has lost some weight. No change in bowel pattern except for some constipation. Presented to the ER. Patient was seen by Dr. Boggs from ANATOMIC PATHOLOGIST. He will follow the patient as outpatient. Also seen by surgery Dr. Calero. Not felt to have acute cholecystitis. Also been treated for acute UTI July 29: Patient rather uncomfortable today. Complaining of diffuse abdominal pain. No nausea vomiting. Not keen on eating. Hasn't eaten since last night. Discussed with Dr. Calero. We'll repeat a computed tomography scan tomorrow morning. Renal function has improved. Review of systems: Was done for constitutional, cardiovascular, GI, pulmonary. relevant finding as above Active Medications Acetaminophen (Acetaminophen Tab 500 Mg Tab) 500 mg PO Q6HR PRN PRN Reason: Fever and/ or Mild Pain Last Admin: 07/29/21 11:36 Dose: 500 mg Documented by: Hydromorphone HCl (Hydromorphone 0.5 Mg/0.5 Ml Syringe) 0.5 mg IVP Q3HR PRN PRN Reason: Pain Last Admin: 07/29/21 14:22 Dose: 0.5 mg Documented by: Sodium Chloride (Saline 0.9%) 1,000 mls @ 130 mls/hr IV .Q7H42M BRIAN Last Admin: 07/29/21 08:34 Dose: 130 mls/hr Documented by: Ceftriaxone Sodium 1 gm/ (Sodium Chloride) 50 mls @ 100 mls/hr IVPB Q12H BRIAN Naloxone HCl (Naloxone 0.4 Mg/Ml 1 Ml Vial) 0.2 mg IV Q2M PRN PRN Reason: Opioid Reversal Ondansetron HCl (Ondansetron 4 Mg/2 Ml Vial) 4 mg IVP Q8HR PRN PRN Reason: Nausea And Vomiting Past medical history to include: Unremarkable Social history: Lives with sister. No smoking or alcohol. Family history: Reviewed, noncontributory to presentation Physical examination: VITAL SIGNS: 97.8, 66, 16, 142/92, 99% room air GENERAL:. reclining in bed, awake, uncomfortable EYES: Pupils equal. Conjunctiva normal. HEENT: External appearance of nose and ears normal, oral cavity grossly normal. NECK: JVD not raised; masses not palpable. HEART: First and second heart sounds are normal; no edema. LUNGS: Respiratory rate normal; clear to auscultation. ABDOMEN: Soft, diffuse tenderness, no guarding rigidity, liver spleen not palpable, no masses palpable. PSYCH: Alert and oriented x3; mood and affect anxious. MUSCULAR skeletal: Evidence of mild OA INVESTIGATIONS, reviewed in the clinical context: July 29: WBC 9.1 hemoglobin 13.7 platelets 348 potassium 4.1 BUN 40 creatinine 1.04 WBC 15.4 hemoglobin 16.6 platelets 477 potassium 4.2 sodium 137 BUN 78 creati nine 2.79 Alkaline phosphatase 139 UA positive for blood, leukoesterase, WBC, Stool occult blood negative Coronavirus [PCR]: Not detected Computed tomography scan abdomen pelvis without contrast: Gallbladder is enlarged at 4.4 cm. Ducts not dilated. A regular enlargement of the uterus. Uterine fibroid. Dilated endometrial cavity. Ultrasound kidney bladder: Right kidney imaging limited. No hydronephrosis reported. Gallbladder sludge. Gallbladder wall 3-4 mm. Pelvic ultrasound: Uterus anteverted. Fundal fibroid. Endometrium grossly thickened. Bilateral adnexa limited in evaluation. Assessment and plan: -This patient presents with 1 month of abdominal pain/discomfort. Has had poor appetite and weight loss. Abdominal computed tomography scan and ultrasound findings are nonspecific. Except we have a dilated uterus and a prominent endometrium. ANATOMIC PATHOLOGIST consulted. Spoke to Dr. Boggs. She may want to see the patient as an outpatient Congestive significant abdominal pain.. Repeat computed tomography scan with contrast -Acute kidney injury. Likely prerenal: Improving 13 IV fluids -Hypercalcemia likely from dehydration IV fluids -Acute UTI with cystitis IV ceftriaxone -Dysfunctional uterine bleeding in the setting of enlarged uterus and endometrium. Follow-up with ANATOMIC PATHOLOGIST. Patient having significant abdominal pain and tenderness. No guarding rigidity. Discussed with Dr. Calero. Repeat computed tomography scan of the abdomen pelvis with contrast
[2021-07-30] MEDS: SODIUM CHLORIDE 0.9% 1,000 ML IV SCH ×3 (01:42→15:01)
[2021-07-30] MEDS: IOPAMIDOL CONTRAST (ORAL USE) VIAL PO PRN ×2 (08:24→09:18)
[2021-07-30] MEDS: ACETAMINOPHEN TAB 500 MG TAB PO PRN (10:11)
--- NOTE | 2021-07-30 12:53 | CT ---
EXAMINATION TYPE: CT abdomen pelvis w con DATE OF EXAM: 07/30/2021 COMPARISON: CT 07/27/2021 and ultrasound 07/28/2021 HISTORY: Abdominal pain acute, nonlocalized CT DLP: 893.70 mGycm Automated exposure control for dose reduction was used. TECHNIQUE: Helical acquisition of images from the lung bases through the pelvis have been completed. CONTRAST: Performed with Oral Contrast and with IV Contrast, patient injected with 100 ml mL of Isovue 300. FINDINGS: LUNG BASES: No significant abnormality is appreciated. AORTA: No significant abnormality is appreciated. LIVER/GB: Liver shows low attenuation possibly due to hepatic steatosis. PANCREAS: No significant abnormality is seen. SPLEEN: No significant abnormality is seen. ADRENALS: No significant abnormality is seen. KIDNEYS: Circumaortic left renal vein is noted.. REPRODUCTIVE ORGANS: The previously identified abnormalities are again noted, uterine fibroid is seen , there is a dilated endometrial cavity with heterogeneous lumen, probable soft tissue and fluid claire lar to prior CT BOWEL: No significant abnormality is seen. FREE AIR: No Free Air visible. ASCITES: None visible. PELVIC ADENOPATHY: None visualized. RETROPERITONEAL ADENOPATHY: No Retroperitoneal Adenopathy visible. URINARY BLADDER: No significant abnormality is seen. OSSEOUS STRUCTURES: No significant abnormality is seen. IMPRESSION: FINDINGS NOTED ON PRIOR EXAMS. RECOMMEND CATALOGUE LIBRARIAN CONSULT. CONSIDER ENDOMETRIAL CARCINOMA.
--- NOTE | 2021-07-30 14:51 | P.PN ---
Subjective Progress Note Date: 07/30/21 Principal diagnosis: Abdominal pain Patient is seen on rounds. Continues to have abdominal pain. Is urinating a lot. Objective - Vital Signs Vital signs: Vital Signs Temp 97.7 F 07/30/21 07:51 Pulse 73 07/30/21 07:51 Resp 20 07/30/21 07:51 BP 152/77 07/30/21 07:51 Pulse Ox 100 07/30/21 07:51 Intake & Output 07/29/21 07/30/21 07/30/21 18:59 06:59 18:59 Output Total 60 Balance -60 Output: Urine 60 Other: Voiding Method Toilet Toilet Toilet # Voids 2 2 1 # Bowel Movements 1 - Constitutional General appearance: Present: cooperative, no acute distress - Gastrointestinal General gastrointestinal: Present: normal bowel sounds, tenderness (Diffuse tenderness, no tympany or pain to percussion) - Labs CBC & Chem 7: 07/29/21 06:02 07/29/21 06:02 Labs: Microbiology - Last 24 Hours (Table) 07/27/21 18:09 Blood Culture - Preliminary Blood No Growth after 48 hours 07/27/21 18:00 Blood Culture - Preliminary Blood No Growth after 48 hours 07/27/21 16:33 Urine Culture - Final Urine,Voided - Imaging and Cardiology CT scan - abdomen: report reviewed, image reviewed (This contrasted scan shows no evidence of bowel obstruction. Contrast proceeded through without difficulty. Uterus is enlarged and fluid-filled. Bladder was very full at the time of the scan. ) Assessment and Plan (1) SARAH (acute kidney injury) Current Visit: Yes Status: Acute Code(s): N17.9 - ACUTE KIDNEY FAILURE, UNSPECIFIED SNOMED Code(s): 87529116 (2) Abdominal pain Current Visit: Yes Status: Acute Code(s): R10.9 - UNSPECIFIED ABDOMINAL PAIN SNOMED Code(s): 35268165 (3) Leukocytosis Current Visit: Yes Status: Acute Code(s): D72.829 - ELEVATED WHITE BLOOD CELL COUNT, UNSPECIFIED SNOMED Code(s): 404472999 (4) Postmenopausal bleeding Current Visit: Yes Status: Acute Code(s): N95.0 - POSTMENOPAUSAL BLEEDING SNOMED Code(s): 83028889 (5) Thickened endometrium Current Visit: Yes Status: Acute Code(s): R93.89 - ABNORMAL FINDINGS ON DX IMAGING OF OTH BODY STRUCTURES SNOMED Code(s): 676625051 (6) UTI (urinary tract infection) Current Visit: Yes Status: Acute Code(s): N39.0 - URINARY TRACT INFECTION, SITE NOT SPECIFIED SNOMED Code(s): 25293956 Plan: CT was repeated with contrast due to persistent pain. The only findings of significance were the markedly enlarged uterus. Her bladder was also very full at the time of computed tomography scan. I had the patient straight cathed to check for post void residual. There was minimal residual. I think the P shins pain is most likely related to the uterine abnormality. I will call and discuss the case with Dr. Fraser
[2021-07-30] MEDS ORDERED: HYDROcodone/APAP 5-325MG 1 EACH TAB PO PRN (14:52)
[2021-07-30] MEDS ORDERED: SODIUM CHLORIDE 0.9% 1,000 ML IV SCH (15:15)
[2021-07-30 16:32] VITALS: BP 118/69; PULSE 69; RESP 18; TEMP 98.3
--- NOTE | 2021-07-30 19:32 | P.DS ---
Providers Date of admission: 07/27/21 19:00 Expected date of discharge: 07/30/21 Attending physician: Cliff Fraser Consults: 07/27/21 19:19 Consult Physician Routine Consulting Provider: En Boggs Consult Reason/Comments: dilated endometrial cavity Do you want consulting provider notified?: Yes 07/28/21 11:09 Consult Physician Routine Consulting Provider: Rachell Calero Consult Reason/Comments: abdominal pain Do you want consulting provider notified?: Yes Primary care physician: [facility] Course: Chief Complaint: Abdominal discomfort This is a pleasant 65-year-old patient who follows with Dr. Rivera. Patient otherwise in good health. Up to about a month ago. Started noticing upper abdominal discomfort. It slowly progressed. Patient also started noticing vaginal bleeding progressively in emergently getting worse. Also had intermittent nausea. Intermittent fever. Occasionally. Poor appetite as per stay for last 2 weeks. Has lost some weight. No change in bowel pattern except for some constipation. Presented to the ER. Patient was seen by Dr. Boggs from [facility]. He will follow the patient as outpatient. Also seen by surgery Dr. Calero. Not felt to have acute cholecystitis. Also been treated for acute UTI July 29: Patient rather uncomfortable today. Complaining of diffuse abdominal pain. No nausea vomiting. Not keen on eating. Hasn't eaten since last night. Discussed with Dr. Calero. We'll repeat a computed tomography scan tomorrow morning. Renal function has improved. July 30: Patient repeat computed tomography scan done. Results and discuss Dr. Calero. Unremarkable. Patient had a previous previous GI workup last year at [facility]. EGD colonoscopy was unremarkable. Patient told to follow-up with GI. She'll also follow-up with MAINTENANCE TECHNIC[facility] Dr. Boggs for a uterus. Use Tylenol and K pad for pain. Diet as tolerated. Discussion and discharge planning more than 35 minutes Consultation: Dr. Boggs from [facility] Dr. Calero from surgery Past medical history to include: Unremarkable Social history: Lives with sister. No smoking or alcohol. Family history: Reviewed, noncontributory to presentation Physical examination: VITAL SIGNS: 38.3, 69, 18, 118/69, 98% room air GENERAL:. reclining in bed, awake, EYES: Pupils equal. Conjunctiva normal. HEENT: External appearance of nose and ears normal, oral cavity grossly normal. NECK: JVD not raised; masses not palpable. HEART: First and second heart sounds are normal; no edema. LUNGS: Respiratory rate normal; clear to auscultation. ABDOMEN: Soft, mild tenderness, no guarding rigidity, liver spleen not palpable, no masses palpable. PSYCH: Alert and oriented x3; mood and affect anxious. MUSCULAR skeletal: Evidence of mild OA INVESTIGATIONS, reviewed in the clinical context: July 29: WBC 9.1 hemoglobin 13.7 platelets 348 potassium 4.1 BUN 40 creatinine 1.04 WBC 15.4 hemoglobin 16.6 platelets 477 potassium 4.2 sodium 137 BUN 78 creatinine 2.79 Alkaline phosphatase 139 UA positive for blood, leukoesterase, WBC, Stool occult blood negative Coronavirus [PCR]: Not detected Computed tomography scan abdomen pelvis without contrast: Gallbladder is enlarged at 4.4 cm. Ducts not dilated. A regular enlargement of the uterus. Uterine fibroid. Dilated endometrial cavity. Ultrasound kidney bladder: Right kidney imaging limited. No hydronephrosis reported. Gallbladder sludge. Gallbladder wall 3-4 mm. Pelvic ultrasound: Uterus anteverted. Fundal fibroid. Endometrium grossly thickened. Bilateral adnexa limited in evaluation. Assessment and plan: -This patient presents with 1 month of abdominal pain/discomfort. Has had poor appetite and weight loss. Abdominal computed tomography scan and ultrasound findings are nonspecific. Except we have a dilated uterus and a prominent endometrium. MAINTENANCE TECHNICIAN consulted. Spoke to Dr. Boggs. Does follow with Dr. Boggs in the office. And GI. -Acute kidney injury. Likely prerenal: Corrected 13 IV fluids -Hypercalcemia likely from dehydration IV fluids -Acute UTI with cystitis IV ceftriaxone. Complete course of Ceftin. -Dysfunctional uterine bleeding in the setting of enlarged uterus and endometrium. Follow-up with MAINTENANCE TECHNICIAN. Disposition: Home Plan - Discharge Summary Discharge Rx Participant: No New Discharge Prescriptions: New Naproxen [Naprosyn] 250 mg PO TID PRN #30 tab PRN Reason: Pain Cefuroxime Axetil [Ceftin] 500 mg PO BID #6 tab Acetaminophen Tab [Tylenol] 500 mg PO Q6HR PRN tab PRN Reason: Fever and/ or Mild Pain Discharge Medication List Acetaminophen Tab [Tylenol] 500 mg PO Q6HR PRN tab 07/30/21 [Rx] Cefuroxime Axetil [Ceftin] 500 mg PO BID #6 tab 07/30/21 [Rx] Naproxen [Naprosyn] 250 mg PO TID PRN #30 tab 07/30/21 [Rx] Follow up Appointment(s)/Referral(s): Elijah Rivera DO [Primary Care Provider] - 1-2 days En Boggs MD [STAFF PHYSICIAN] - 3 Days Adelita Hernandez MD [STAFF PHYSICIAN] - 3 Weeks Patient Instructions/Handouts: Acute Abdominal Pain (DC) Activity/Diet/Wound Care/Special Instructions: K-Pad
== END 2021-07-30 16:57 | disposition home or self-care (01) | DRG 684 ==
LOC: EC 14:32 → 5NMEDONC 19:00 → 6NMEDSUR 07-28 04:00
PROVIDERS: ADMIT Hospitalist; ATTEND Hospitalist
DX: N17.9 Acute kidney failure, unspecified (principal); K21.9 Gastro-esophageal reflux disease without esophagitis; N93.8 Other specified abnormal uterine and vaginal bleeding; N85.2 Hypertrophy of uterus; N30.90 Cystitis, unspecified without hematuria; E86.0 Dehydration; R41.0 Disorientation, unspecified; E83.51 Hypocalcemia; E83.52 Hypercalcemia; R11.2 Nausea with vomiting, unspecified; D25.9 Leiomyoma of uterus, unspecified; K82.8 Other specified diseases of gallbladder; K59.00 Constipation, unspecified; Z20.822 Contact with and (suspected) exposure to COVID-19; R63.0 Anorexia; R93.89 Abnormal findings on diagnostic imaging of other specified body structures; N95.0 Postmenopausal bleeding; R10.84 Generalized abdominal pain; M19.90 Unspecified osteoarthritis, unspecified site
CPT/HCPCS: 36415; 74176; 74177; 76770; 76856; 80048; 80053; 81001; 82150; 82272; 83605; 83690; 85025; 87040; 87086; 87635; 96361; 96374; 96375; 99285

== ENCOUNTER → 2021-08-21 | Outpatient (CLI) | payer MEDICARE, OTHER ==
[2021-08-21 10:20] LABS: Basophils % (A) 1 %; Eosinophils # (A) 0.2 k/uL (0-0.7); Eosinophils % (A) 2 %; HCT 38.8 % (34.0-46.0); HGB 12.1 gm/dL (11.4-16.0); Lymphocytes # (A) 1.5 k/uL (1.0-4.8); Lymphocytes % (A) 23 %; MCH 27.7 pg (25.0-35.0); MCHC 31.2 g/dL (31.0-37.0); MCV 88.6 fL (80.0-100.0); Mean Platelet Volume 6.8; Monocytes # (A) 0.4 k/uL (0-1.0); Monocytes % (A) 5 %; Neutrophils # (A) 4.6 k/uL (1.3-7.7); Neutrophils % (A) 68 %; Platelet Count 369 k/uL (150-450); RBC 4.38 m/uL (3.80-5.40); RDW 14.8 % (11.5-15.5); WBC 6.8 k/uL (3.8-10.6)
[2021-08-21 10:44] LABS: ALT 16 U/L (4-34); AST 26 U/L (14-36); African American GFR (CKD) >90 (>60 ml/min/1.73 sqM); Albumin 3.9 g/dL (3.5-5.0); Alkaline Phosphatase 83 U/L (38-126); Anion Gap 8 mmol/L; Blood Urea Nitrogen 11 mg/dL (7-17); Calcium 9.5 mg/dL (8.4-10.2); Carbon Dioxide 28 mmol/L (22-30); Chloride 105 mmol/L (98-107); Glucose 91 mg/dL (74-99); Non-African American GFR(CKD) 89 (>60 ml/min/1.73 sqM); Potassium 3.6 mmol/L (3.5-5.1); Sodium 141 mmol/L (137-145); Total Bilirubin 0.4 mg/dL (0.2-1.3)
[2021-08-21 10:54] LABS: INR 0.9 (<1.2)
[2021-08-21 11:47] LABS: Appearance,Urine Clear (Clear); Bilirubin,Urine Negative (Negative); Blood,Urine Large (Negative); Color,Urine Light Yellow; Glucose,Urine (UA) Negative (Negative); Ketones,Urine Negative (Negative); Leukocyte Esterase,Urine Negative (Negative); Mucus,Urine Rare /hpf; Nitrite,Urine Negative (Negative); Protein,Urine Negative (Negative); RBC,Urine 15 /hpf (0-5); Specific Gravity,Urine 1.002 (1.001-1.035); Urobilinogen,Urine <2.0 mg/dL (<2.0); WBC,Urine 3 /hpf (0-5)
== END | disposition home or self-care (01) ==
LOC: LABPAT 08:51
PROVIDERS: ATTEND Obstetrics & Gynecology
DX: Z01.818 Encounter for other preprocedural examination (principal); N39.0 Urinary tract infection, site not specified; N95.0 Postmenopausal bleeding; R93.89 Abnormal findings on diagnostic imaging of other specified body structures
CPT/HCPCS: 80053; 81001; 85025; 85610; 85730; 87086; 93005

== ENCOUNTER 2021-09-02 10:01 | Day surgery (SDC) | payer MEDICARE, OTHER ==
[2021-08-29 15:08] VITALS: BMI 25.0
[~2021-09-02 10:01] MED LIST changes: -LACTATED RINGERS 1,000 ML IV SCH; +Pre Op ABX Message 1 EACH MISC MISCELLANE ONE
[2021-09-02 10:43] VITALS: TEMP 98
[2021-09-02] MEDS ORDERED: ONDANSETRON 4 MG/2 ML VIAL ONE (10:57)
[2021-09-02] MEDS ORDERED: LACTATED RINGERS 1,000 ML IV ONE ×2 (10:58→13:10)
[2021-09-02] MEDS ORDERED: DEXAMETHASONE SOD PHOSPHATE 4 MG/ML 1 ML VIAL IVP ONE (10:59)
[2021-09-02] MEDS ORDERED: PROPOFOL 10 MG/ML 20 ML VIAL IV ONE (12:28)
[2021-09-02] MEDS ORDERED: MIDAZOLAM 2 MG/2 ML VIAL ONE (12:28)
[2021-09-02] MEDS ORDERED: fentaNYL (PF) 50 MCG/ML 2 ML AMP ONE (12:28)
[2021-09-02] MEDS ORDERED: LIDOCAINE 1% INJ 10MG/ML (20 ML MDV) ONE (12:28)
[2021-09-02] MEDS ORDERED: KETOROLAC 15 MG/ML 1 ML VIAL ONE (12:28)
[2021-09-02] MEDS ORDERED: KETOROLAC 15 MG/ML 1 ML VIAL IVP PRN (13:19)
[2021-09-02] MEDS ORDERED: ONDANSETRON 4 MG/2 ML VIAL IVP PRN (13:19)
[2021-09-02] MEDS ORDERED: diphenhydrAMINE 50 MG/ML 1 ML VIAL IVP PRN (13:19)
[2021-09-02] MEDS ORDERED: SIMETHICONE 80 MG CHEWABLE PO PRN (13:19)
[2021-09-02] MEDS ORDERED: IBUPROFEN 600 MG TAB PO PRN (13:19)
[2021-09-02] MEDS ORDERED: Acetaminophen-Codeine 300-30mg TAB PO PRN ×2 (13:19)
[2021-09-02] MEDS ORDERED: METOCLOPRAMIDE 5 MG/ML 2 ML VIAL IVP PRN (13:19)
[2021-09-02] MEDS ORDERED: LACTATED RINGERS 1,000 ML IV SCH (13:30)
--- NOTE | 2021-09-02 13:32 | P.OP ---
Date of Procedure: 09/02/21 Preoperative Diagnosis: #1. Postmenopausal bleeding #2. Thickened endometrium, suspected submucous fibroid Postoperative Diagnosis: Same Procedure(s) Performed: #1. Diagnostic hysteroscopy #2. Symphion resection of intrauterine mass #3. Endometrial curettage Anesthesia: other (Gen. by LMA) Surgeon: En Boggs Estimated Blood Loss (ml): 25 IV fluids (ml): 300 Urine output (ml): 150 Pathology: other (Hysteroscopically resected tissue and intrauterine contents from curettage) Condition: stable Disposition: PACU Operative Findings: Preoperative pelvic examination demonstrated a roughly 6-7 week size uterus which is anteverted in nature. There was some ongoing vaginal bleeding. The cervix itself was felt to be very short though it was slightly dilated as well. The uterus sounded to 9 cm. The Symphion hysteroscope and resection device was introduced and revealed what appeared to be a large mass possibly consistent with a fibroid filling the entire cavity. The tubal ostia were never seen. A significant amount of tissue was removed both with the resection device and, following hysteroscopy, with an endometrial curet. The tissue all felt to be quite firm possibly consistent with a fibroid and the and mitral cavity felt firm and gritty as well. Description of Procedure: The patient was prepped and draped in usual fashion after general anesthesia was administered by the anesthesiologist. A weighted speculum was placed and the bladder drained of approximately 150 mL of clear kristin urine. The cervix was grasped with a single-tooth tenaculum and uterus sounded to 9 cm as noted above. A 12-Mauritanian dilator was easily introduced through the cervix and then set aside. The Symphion hysteroscope and resection device was introduced into the cavity and saline used to distend the cavity. The findings were as noted above with what appeared to be a large am mass filling the entire endometrial cavity which appeared to be consistent with a fibroid rather than polypoid type tissue. It was also relatively firm. Ultimately, the resection tool was introduced and a number of passes made along and through the central portion of the intrauterine mass with the tissue being collected in its receptacle. After number of passes, it became very difficult to maintain adequate pressure as significant amount of fluid was leaking back through the cervix and could not be stanched using an Allis clamp. Visualization became significantly difficult and further resectoscopy was abandoned for patient safety. Fluid usage of in and out was relatively equal though a moderate amount of spillage onto the floor and into the collection bucket at my feet was noted as well. There was never concern for the possibility of uterine perforation. The hysteroscope and resection device were then set aside and a medium sharp endometrial curet was introduced into the cavity thorough and circumferential curettage was carried out and delivered a significant amount of firm tissue fragments through the cervix onto a Telfa in the vagina. The texture of the endometrial cavity which appeared to be now open was firm and relatively gritty throughout. After it appeared that all tissue had been collected, the instrumentation was removed. There is no significant ongoing bleeding from either the cervix or the tenaculum site. Estimated blood loss for the case was approximately 25 mL. There were no complications. All sponge, instrument, and needle counts were correct. The patient tolerated the procedure well and proceeded to the recovery room in stable condition.
[2021-09-02] MEDS ORDERED: HYDROmorphone 0.5 MG/0.5 ML SYRINGE IVP ONE ×2 (13:44→13:55)
[2021-09-02 14:26] VITALS: RESP 16
[2021-09-02 15:17] VITALS: BP 147/80; PULSE 72
== END 2021-09-02 15:23 | disposition home or self-care (01) ==
LOC: OR 10:01
PROVIDERS: ATTEND Obstetrics & Gynecology
DX: C54.1 Malignant neoplasm of endometrium (principal); Z79.899 Other long term (current) drug therapy
CPT/HCPCS: 88305; 58558; J2250; J1100; J2405; J2001; J3010; J1885; J2704; J1170

== ENCOUNTER → 2021-09-17 | Outpatient (CLI) | payer MEDICARE ==
[2021-09-17 12:43] LABS: Appearance,Urine Cloudy (Clear); Bacteria,Urine Rare /hpf; Bilirubin,Urine Negative (Negative); Blood,Urine Large (Negative); Color,Urine Yellow; Glucose,Urine (UA) Negative (Negative); Ketones,Urine 1+ (Negative); Leukocyte Esterase,Urine Large (Negative); Mucus,Urine Rare /hpf; Nitrite,Urine Negative (Negative); PH, Urine 6.5 (5.0-8.0); Protein,Urine 1+ (Negative); RBC,Urine >182 /hpf (0-5); Specific Gravity,Urine 1.007 (1.001-1.035); Squamous Epithelial Cell,Urine <1 /hpf (0-4); Urobilinogen,Urine <2.0 mg/dL (<2.0); WBC,Urine 86 /hpf (0-5)
[2021-09-17 18:41] LABS: Basophils # (A) 0.08 X 10*3/uL (0.00-0.10); Basophils % (A) 0.9 %; Eosinophils # (A) 0.13 X 10*3/uL (0.04-0.35); Eosinophils % (A) 1.4 %; HCT 38.7 % (37.2-46.3); HGB 11.8 g/dL (12.0-15.0); Lymphocytes # (A) 2.24 X 10*3/uL (0.90-5.00); Lymphocytes % (A) 24.5 %; MCH 27.5 pg (27.0-32.0); MCHC 30.5 g/dL (32.0-37.0); MCV 90.2 fL (80.0-97.0); Mean Platelet Volume 9.1 fL (9.5-12.2); Monocytes % (A) 6.6 %; Neutrophils # (A) 6.07 X 10*3/uL (1.80-7.70); Neutrophils % (A) 66.5 %; Platelet Count 428 X 10*3/uL (140-440); RBC 4.29 X 10*6/uL (4.10-5.20); WBC 9.13 X 10*3/uL (4.50-10.00)
[2021-09-17 19:19] LABS: ALT 22 U/L (8-44); AST 29 U/L (13-35); African American GFR (CKD) 78.7 (60.0-200.0); Albumin 4.4 g/dL (3.8-4.9); Alkaline Phosphatase 98 U/L (41-126); BUN/Creat Ratio 10.48 Ratio (12.00-20.00); Bilirubin, Conjugated <0.20 mg/dL (0.20-0.40); Blood Urea Nitrogen 9.2 mg/dL (9.0-27.0); Calcium 9.6 mg/dL (8.7-10.3); Carbon Dioxide 26.8 mmol/L (20.0-27.5); Chloride 101 mmol/L (96-109); Globulin 2.7 g/dL (1.6-3.3); Glucose 81 mg/dL (70-110); Non-African American GFR(CKD) 67.9 (60.0-200.0); Potassium 4.1 mmol/L (3.5-5.5); Sodium 142 mmol/L (135-145); Total Protein 7.1 g/dL (6.2-8.2)
== END | disposition home or self-care (01) ==
LOC: LABWHC1 10:34
PROVIDERS: ATTEND Obstetrics & Gynecology
DX: C54.1 Malignant neoplasm of endometrium (principal)
CPT/HCPCS: 36415; 80048; 80076; 81001; 85025; 87086

== ENCOUNTER → 2021-09-25 | Outpatient (CLI) | payer MEDICARE, OTHER ==
[2021-09-25 16:53] LABS: African American GFR (CKD) >90 (>60 ml/min/1.73 sqM); Blood Urea Nitrogen 9 mg/dL (7-17); Non-African American GFR(CKD) 90 (>60 ml/min/1.73 sqM)
--- NOTE | 2021-09-26 08:05 | CT ---
EXAMINATION TYPE: CT ChestAbdPelvis w con DATE OF EXAM: 09/25/2021 COMPARISON: CT abdomen and pelvis July 30, 2021 and older. HISTORY: Malignant neoplasm of uterus CT DLP: 1559 mGycm. Automated Exposure Control for Dose Reduction was Utilized. CONTRAST: CT scan of the thorax, abdomen and pelvis is performed with IV Contrast, patient injected with 100 mL of Isovue 300. FINDINGS: LUNGS: The lungs are grossly clear, there is no concerning parenchymal mass or nodule identified. T here is no pleural effusion or pneumothorax seen. The tracheobronchial tree is patent. MEDIASTINUM: There are no greater than 1 cm hilar or mediastinal lymph nodes. No cardiomegaly or pe ricardial effusion is seen. LIVER/GB: No significant abnormality is appreciated. PANCREAS: No significant abnormality is seen. SPLEEN: No significant abnormality is seen. ADRENALS: No significant abnormality is seen. KIDNEYS: No significant abnormality is seen. BOWEL: No significant abnormality is seen. GENITAL ORGANS: Anteverted enlarged uterus with prominent low dense endometrial canal. There is 3.3 c m hyperdense fibroid axial image 98 and the right anterior fundus. There is a 1.6 cm hyperdense submu cosal fibroid posteriorly axial image 96. Normal size ovaries. No suspicious adjacent adenopathy. No free fluid. LYMPH NODES: No greater than 1cm abdominal or pelvic lymph nodes are appreciated. OSSEOUS STRUCTURES: Uxpu-ta-laljcoff multilevel spurring in the spine. Facet arthropathy lower lumbar levels. OTHER: No significant additional abnormality is seen. IMPRESSION: Abnormal appearance of uterus likely consistent with known endometrial cancer. Small sca ttered uterine fibroids incidentally noted. No suspicious mass or adenopathy to suggest metastatic di sease.
== END | disposition home or self-care (01) ==
LOC: RADCTMAIN 16:04
PROVIDERS: ATTEND Obstetrics & Gynecology
DX: C55 Malignant neoplasm of uterus, part unspecified (principal)
CPT/HCPCS: 82565; 84520; 71260; 74177; 36415; Q9967

== ENCOUNTER → 2021-10-02 | Outpatient (CLI) | payer MEDICARE | END | disposition home or self-care (01) | LOC: LABPAT 09:07 | PROVIDERS: ATTEND Obstetrics & Gynecology | DX: Z20.822 Contact with and (suspected) exposure to COVID-19 (principal) | CPT/HCPCS: U0003; C9803 ==

== ENCOUNTER → 2021-11-15 | Day surgery (SDC) | payer MEDICARE, OTHER ==
[2021-11-12 15:59] VITALS: BMI 34.0
[~2021-11-15] MED LIST changes: +ACETAMINOPHEN TAB 500 MG TAB PO PRN; +DEXAMETHASONE SOD PHOSPHATE 4 MG/ML 1 ML VIAL IV ONE; +HEPARIN SODIUM,PORCINE/PF 5,000 UNIT/0.5 ML SYRINGE SQ PRN; +HYDROcodone/APAP 5-325MG 1 EACH TAB PO PRN; +HYDROmorphone 1 MG/ML 1 ML SYRINGE IVP PRN; +LACTATED RINGERS 1,000 ML IV SCH; +LIDOCAINE 1% INJ 10MG/ML (20 ML MDV) ONE; +LIDOCAINE 1% INJ 10MG/ML (20 ML MDV) SQ ONE; +MIDAZOLAM 2 MG/2 ML VIAL IV PRN; +MIDAZOLAM 2 MG/2 ML VIAL ONE; +NALOXONE 0.4 MG/ML 1 ML VIAL IV PRN; +ONDANSETRON 4 MG/2 ML VIAL IVP ONE; +PROPOFOL 10 MG/ML 20 ML VIAL IV ONE; +ceFAZolin 1,000 MG VIAL IVPB ONE; +fentaNYL (PF) 50 MCG/ML 2 ML AMP ONE
--- NOTE | 2021-11-15 10:01 | P.GSHP ---
History of Present Illness H&P Date: 11/15/21 Chief Complaint: Uterine cancer 65-year-old female recently diagnosed with uterine cancer. Patient here today for Port-A-Cath placement. Says she will be receiving 6 courses of chemotherapy and starting chemotherapy next Thursday. She has not had a port previously. Past Medical History Past Medical History: Cancer Additional Past Medical History / Comment(s): Current uterine cancer. History of Any Multi-Drug Resistant Organisms: None Reported Past Surgical History: No Surgical Hx Reported Additional Past Surgical History / Comment(s): Colonoscopy, hysteroscopy. Past Anesthesia/Blood Transfusion Reactions: No Reported Reaction Past Psychological History: No Psychological Hx Reported Smoking Status: Never smoker Past Alcohol Use History: None Reported Past Drug Use History: None Reported - Past Family History Mother Family Medical History: No Reported History Father Family Medical History: Unable to Obtain Medications and Allergies Home Medications Medication Instructions Recorded Confirmed Type No Known Home Medications 11/12/21 11/12/21 History Allergies Allergy/AdvReac Type Severity Reaction Status Date / Time No Known Allergies Allergy Verified 11/15/21 08:50 Surgical - Exam Vital Signs Temp Pulse Resp BP Pulse Ox 98.2 F 79 20 171/78 99 11/15/21 09:04 11/15/21 09:04 11/15/21 09:04 11/15/21 09:04 11/15/21 09:04 Physical exam: General: Well-developed, well-nourished HEENT: Normocephalic, sclerae nonicteric Abdomen: Nontender, nondistended Extremities: No edema Neuro: Alert and oriented Assessment and Plan (1) Uterine cancer Narrative/Plan: 65-year-old female with uterine cancer. We'll proceed with Port-A-Cath placement at this time. Risks of bleeding, infection, DVT, pneumothorax, catheter malfunction, anesthesia related complications were discussed. The patient understands and wishes to proceed. Current Visit: Yes Status: Acute Code(s): C55 - MALIGNANT NEOPLASM OF UTERUS, PART UNSPECIFIED SNOMED Code(s): 567444712
--- NOTE | 2021-11-15 11:03 | P.OP ---
Date of Procedure: 11/15/21 Procedure(s) Performed: PREOPERATIVE DIAGNOSIS: Uterine cancer POSTOPERATIVE DIAGNOSIS: Same PROCEDURE: Port-A-Cath placement with fluoroscopic and ultrasound guidance SURGEON: Lyla EBL: Minimal ANESTHESIA: Sedation COMPLICATIONS: None OPERATIVE PROCEDURE: Patient was brought and placed on the operative table in the supine position. The patient was sedated per anesthesia that time. The chest and neck were prepped and draped in usual sterile fashion. The ultrasound probe was used to identify the location of the right internal jugular vein. The skin was localized with lidocaine. The Seldinger needle was advanced into the IJ under ultrasound guidance. The wire was advanced through the needle under fluoroscopic guidance into the superior vena cava. A port pocket was created in the right infraclavicular location. The catheter was tunneled from the wire entrance site to the port pocket. The port was then connected to the catheter. The dilator introducer was threaded over the guidewire. The guidewire and dilator were then removed. The catheter was advanced through the introducer and introducer was then removed. The tip was seen to be in the right atrial junction via fluoroscopy. A picture of the radiograph showing the tip at the radial digital junction was taken. Port was flushed with both saline and a Hep- Lock solution. There was good flow both in and out of the port. The port was sutured in underlying tissues using 3-0 silk sutures. The subcutaneous tissues were reapproximated using 3-0 Vicryl sutures and the skin at both locations using 4-0 Monocryl sutures. Skin glue and sterile dressings then applied. DISPOSITION: Stable to recovery room
[2021-11-15 11:12] VITALS: TEMP 97.5
--- NOTE | 2021-11-15 11:33 | XR ---
EXAMINATION TYPE: XR chest 1V confirm line [facility] DATE OF EXAM: 11/15/2021 COMPARISON: Chest x-ray 04/05/2014 HISTORY: Status post central venous catheter placement TECHNIQUE: Single frontal view of the chest is obtained. FINDINGS: There has been placement of a port in the right pectoral region, catheter courses via a ju gular approach, distal tip is overlying the superior vena cava. No evident pneumothorax or pleural ef fusion. Cardiac mediastinal silhouette is stable. There are overlying leads. Arthropathy noted in the shoulders at the acromioclavicular joints, there may be a spinal curvature. IMPRESSION: No evident complication status post central venous catheter placement.
--- NOTE | 2021-11-15 11:35 | FL ---
Fluoroscopy HISTORY: Port-A-Cath placement 5 seconds fluoroscopy time supplied to the referring clinician. 1 intraoperative C-arm images docume nt the procedure. See dictated report from general surgery.
[2021-11-15 11:48] VITALS: RESP 16
[2021-11-15 12:19] VITALS: BP 146/74; PULSE 72
== END ==
LOC: OR 08:28
PROVIDERS: ATTEND Surgery
DX: C55 Malignant neoplasm of uterus, part unspecified (principal); Z98.890 Other specified postprocedural states; Z90.710 Acquired absence of both cervix and uterus; Z86.19 Personal history of other infectious and parasitic diseases; Z97.2 Presence of dental prosthetic device (complete) (partial)
CPT/HCPCS: 77001; 36561; 76937; C1788; J2250; J1100; J2405; J0690; J2001; J3010; J1642; J2704; J1644

== ENCOUNTER → 2022-04-29 | Outpatient (CLI) | payer MEDICARE ==
[2022-04-29 13:20] LABS: African American GFR (CKD) >90 (>60 ml/min/1.73 sqM); Blood Urea Nitrogen 8 mg/dL (7-17); Non-African American GFR(CKD) 79 (>60 ml/min/1.73 sqM)
--- NOTE | 2022-04-29 14:39 | CT ---
EXAMINATION TYPE: CT abdomen pelvis w con CT DLP: 515.4 mGycm, Automated exposure control for dose reduction was used. DATE OF EXAM: 04/29/2022 2:08 PM COMPARISON: CT chest abdomen pelvis 09/25/2021 CLINICAL INDICATION:Female, 66 years old with history of R10.32 LLQ pain; LLQ pain TECHNIQUE: Standard CT of the abdomen and pelvis following the administration of 70 cc of Isovue 30 0 IV contrast material and oral contrast. Coronal and sagittal reformats were performed. FINDINGS: LOWER CHEST: Stable 2 mm pulmonary micronodule within the right lower lobe. ABDOMEN LIVER: Unremarkable GALLBLADDER AND BILE DUCTS: Layering increased densities within the lumen consistent with gallstones are present. No biliary duct dilatation. PANCREAS: Unremarkable. SPLEEN: Unremarkable. ADRENAL GLANDS: Unremarkable. KIDNEYS AND URETERS: No evidence of hydronephrosis or renal calculus. The ureters are unremarkable. PELVIS BLADDER: Unremarkable REPRODUCTIVE: The uterus is surgically absent. ABDOMEN & PELVIS STOMACH AND BOWEL: Stomach fundal diverticulum. Scattered diverticula are noted throughout the colon. No evidence of bowel obstruction. PERITONEUM: No evidence of pneumoperitoneum or free fluid. Soft tissue nodule measuring 1.5 cm adjace nt to the descending colon (series 3, image 45). VASCULATURE: No evidence of aortic aneurysm. MUSCULOSKELETAL: No acute osseous abnormalities. Multilevel Schmorl's nodes. No suspicious osseous an tibodies. LYMPH NODES: No gross evidence for lymphadenopathy. SOFT TISSUE/ABDOMINAL WALL: Unremarkable IMPRESSION: 1. No acute abdominal/pelvic process. 2. Nonspecific soft tissue nodule measuring up to 1.5 cm abutting the descending colon. This may repr esent a metastatic implant. Attention on follow-up imaging. 3. Cholelithiasis.
== END | disposition home or self-care (01) ==
LOC: RADCTMAIN 12:14
PROVIDERS: ATTEND Family Medicine
DX: K80.20 Calculus of gallbladder without cholecystitis without obstruction (principal)
CPT/HCPCS: 82565; 84520; 74177; 36415; Q9967

== ENCOUNTER → 2022-05-28 | Outpatient (CLI) | payer MEDICARE ==
[2022-05-28 11:17] LABS: African American GFR (CKD) >90 (>60 ml/min/1.73 sqM); Blood Urea Nitrogen 7 mg/dL (7-17); Non-African American GFR(CKD) 90 (>60 ml/min/1.73 sqM)
--- NOTE | 2022-05-28 13:42 | CT ---
EXAMINATION TYPE: CT abdomen pelvis w con CT DLP: 513.8 mGycm, Automated exposure control for dose reduction was used. DATE OF EXAM: 05/28/2022 12:13 PM COMPARISON: CT abdomen pelvis most recent from 04/29/2022. CLINICAL INDICATION:Female, 66 years old with history of UTERINE CANCER C54.9; Uterine CA TECHNIQUE: Standard CT of the abdomen and pelvis following the administration of 100 cc of Isovue 3 00 IV contrast material and oral contrast. Coronal and sagittal reformats were performed. FINDINGS: LOWER CHEST: Unremarkable ABDOMEN LIVER: Small region of low attenuation adjacent to falciform ligament likely representing focal fatty infiltration. No concerning hepatic lesions. GALLBLADDER AND BILE DUCTS: Layering increased densities within the lumen consistent with gallstones are present. No biliary ductal dilatation. PANCREAS: Unremarkable. SPLEEN: Unremarkable. ADRENAL GLANDS: Unremarkable. KIDNEYS AND URETERS: No evidence of hydronephrosis or renal calculus. Kidneys enhance symmetrically w ithout suspicious focal lesion. PELVIS BLADDER: Incompletely distended but grossly unremarkable. REPRODUCTIVE: The uterus is surgically absent. No gross adnexal mass. ABDOMEN & PELVIS STOMACH AND BOWEL: Stomach fundal diverticulum. No focal wall thickening or surrounding inflammatory changes. Scattered diverticula are noted throughout the colon without surrounding inflammatory change s. No evidence of bowel obstruction. PERITONEUM: No evidence of pneumoperitoneum or free fluid. Increase in size of soft tissue lesion abu tting the descending colon (series 3, image 41). This measures 2.1 x 1.6 image, previously 1.5 x 1.1 cm. This demonstrates central low attenuation and may represent central necrosis. There is questionab le fat plane with the adjacent colon. VASCULATURE: No evidence of aortic aneurysm. MUSCULOSKELETAL: No acute osseous abnormalities. Multilevel Schmorl's nodes. No aggressive osseous le sions. LYMPH NODES: No gross evidence for lymphadenopathy. SOFT TISSUE/ABDOMINAL WALL: Unremarkable IMPRESSION: 1. Increased size of 2.1 cm soft tissue lesion abutting the descending colon, previously 1.5 cm. Thi s is concerning for metastatic implant. 2. Colon diverticulosis without evidence for acute diverticulitis. 3. Cholelithiasis.
== END | disposition home or self-care (01) ==
LOC: RADPROMAIN 09:42
PROVIDERS: ATTEND Internal Medicine Hematology & Oncology
DX: C54.9 Malignant neoplasm of corpus uteri, unspecified (principal); K63.89 Other specified diseases of intestine; K80.20 Calculus of gallbladder without cholecystitis without obstruction; R89.9 Unspecified abnormal finding in specimens from other organs, systems and tissues
CPT/HCPCS: 82565; 84520; 74177; 36415; J1642; Q9967 ×2

== ENCOUNTER → 2022-09-02 | Outpatient (CLI) | payer MEDICARE ==
[2022-09-02 11:02] LABS: African American GFR (CKD) >90 (>60 ml/min/1.73 sqM); Blood Urea Nitrogen 10 mg/dL (7-17); Non-African American GFR(CKD) >90 (>60 ml/min/1.73 sqM)
--- NOTE | 2022-09-02 11:57 | CT ---
EXAMINATION TYPE: CT ChestAbdPelvis w con CT DLP: 622.5 mGycm, Automated exposure control for dose reduction was used. DATE OF EXAM: 09/02/2022 11:41 AM COMPARISON: CT abdomen pelvis 05/28/2022, CT chest abdomen pelvis 09/25/2021. CLINICAL INDICATION:Female, 66 years old with history of C54.9 UTERINE CANCER; PHH, f/u uterine ca Technique: Multiple axial images of the chest, abdomen, and pelvis were obtained following the intrav enous administration of 70 cc Isovue-300. Oral contrast was administered. Two-dimensional coronal and sagittal reconstructions were obtained. Findings: CHEST: LUNGS/ PLEURA: No pneumothorax, pleural effusion, focal consolidation. No suspicious pulmonary nodule or mass. AIRWAY: Patent and unremarkable.. HEART: Size within normal limits. No pericardial effusion. MEDIASTINUM: No gross evidence of adenopathy. Punctate calcified granulomas within the mediastinum an d right hilum. VASCULATURE: No aortic aneurysm. Right chest wall IJ Mediport catheter with tip terminating in the h igh SVC. MUSCULOSKELETAL: No acute osseous abnormalities. SOFT TISSUES/LYMPH NODES: Unremarkable. LOWER NECK: No significant findings. ABDOMEN: ABDOMEN LIVER: Unremarkable GALLBLADDER AND BILE DUCTS: Cholelithiasis without surrounding inflammatory changes. No biliary ducta l dilatation. PANCREAS: Unremarkable. SPLEEN: Unremarkable. ADRENAL GLANDS: Unremarkable. KIDNEYS AND URETERS: No evidence of hydronephrosis or renal calculus. The kidneys enhance symmetrical ly without suspicious focal lesion. Circumaortic left renal vein. PELVIS BLADDER: Incompletely distended but grossly unremarkable. REPRODUCTIVE: The uterus is surgically absent. No suspicious adnexal mass. ABDOMEN & PELVIS STOMACH AND BOWEL: Stomach fundal diverticulum. Scattered colonic diverticulosis without evidence for acute diverticulitis.Mass effect with invasion into the descending colon from the previously demonst rated omental implant which is markedly grown in size as described below. There is enteric contrast p assing the lesion extending into the rectum. No evidence of bowel obstruction. PERITONEUM: No evidence of pneumoperitoneum or free fluid. Marked increase in size of soft tissue mas s along the lateral aspect of the descending colon measuring 7.0 x 6.3 x 7.1 cm in AP, TV, CC dimensi ons. There is invasion into the descending colon with mass effect. This abuts the abdominal wall. No new omental implants demonstrated. VASCULATURE: No evidence of aortic aneurysm. MUSCULOSKELETAL: No acute osseous abnormalities. No aggressive osseous lesion. Multilevel Schmorl's n odes. LYMPH NODES: No gross evidence for lymphadenopathy. SOFT TISSUE/ABDOMINAL WALL: Unremarkable IMPRESSION: 1. Marked increase in size of 7.1 cm soft tissue lesion invading the descending colon with surroundi ng mass effect, previously 2.1 cm. No obstruction however there is significant luminal narrowing. Thi s is considered metastatic disease/recurrence until proven otherwise. 2. No evidence of metastatic disease within the chest. 3. Cholelithiasis.
== END | disposition home or self-care (01) ==
LOC: RADPROMAIN 09:07
PROVIDERS: ATTEND Internal Medicine Hematology & Oncology
DX: C54.9 Malignant neoplasm of corpus uteri, unspecified (principal); K80.20 Calculus of gallbladder without cholecystitis without obstruction
CPT/HCPCS: 82565; 84520; 71260; 74177; 36415; J1642; Q9967

== ENCOUNTER → 2022-10-27 | Outpatient (CLI) | payer MEDICARE ==
[2022-10-27 14:53] LABS: African American GFR (CKD) >90 (>60 ml/min/1.73 sqM); Blood Urea Nitrogen 10 mg/dL (7-17); Non-African American GFR(CKD) >90 (>60 ml/min/1.73 sqM)
--- NOTE | 2022-10-28 10:40 | CT ---
EXAMINATION TYPE: CT ChestAbdPelvis w con DATE OF EXAM: 10/27/2022 INDICATION: Malignant neoplasm of uterus. COMPARISON: 09/02/2022 CT DLP: 508.3 mGycm CONTRAST: Performed with Oral Contrast and with IV Contrast, patient injected with 70ml mL of Isovue 300. TECHNIQUE: Axial images at 5 mm thick sections. Reconstructed images in the coronal plane. Delayed images through the kidneys. FINDINGS: CT CHEST: Portion of the thyroid visualized is normal. There is a 1.1 cm nodule in the posterior right lung base. Very minimal left pleural effusion is pres ent. These findings are new from comparison. No enlarged mediastinal or hilar adenopathy is evident. The ascending aorta diameter at the level of the main pulmonary artery is 3.2 cm. The main pulmonary artery diameter at the bifurcation is 2.[address] ABDOMEN: There is a large left abdomen mass contains some small amount of air and is heterogenous. This measures 11.2 x 8.2 x 10.5 cm. This is enlarging from comparison. Previous measurement 6.3 x 7. 0 cm. There is a soft tissue nodule anterior lateral left subcutaneous tissues measuring 2.0 cm. This is ne w and may be a metastatic deposit. Liver: There is a 1.1 cm hypodensity in the superior right lobe liver just below the diaphragm. This appears to be an interval change this measures 43 Hounsfield units. Additional subtle hypodensities are within the lateral right lobe liver and within the anterior lateral left lobe liver. The largest baby measured 2.8 cm in the medial right lobe liver which may have mild expansion of the cortex. Find ings are suspicious for metastatic disease. Additional workup with PET CT is recommended. Spleen: Normal Pancreas: Normal Adrenal glands: The adrenal glands are normal. Gallbladder: Couple of tiny gallstones may be present. Kidneys: No masses are evident. No hydronephrosis is present. No cysts are present. Delayed images were obtained through the kidneys, which remain unremarkable. Aorta: Vascular calcification is within the aorta. Inferior vena cava: Normal. CT PELVIS: There is an ostomy in the left lower quadrant. Fecal debris is within the colon. Oral contrast extend s to the ascending colon region. Small bowel loops distended with oral contrast. Unremarkable. There are loops of bowel lacking oral contrast limiting their evaluation. Appendix: Normal as visualized. Urinary bladder: Normal. Genitourinary structures: Uterus and ovaries are not identified. No free fluid is within the pelvis. Osseous structures: There may be some sclerotic areas within the endplates of T11-12. Milder scleroti c areas are within the endplates of the mid thoracic spine. Suspicious sclerotic areas are not otherw ise evident. No suspicious lytic lesions are identified. IMPRESSIONS: 1. Enlarging left mid abdomen mass. 2. Subcutaneous nodule in the left anterior lateral flank could be a metastatic deposit. 3. Multiple new hypodensities within the liver suspicious for metastasis.
== END | disposition home or self-care (01) ==
LOC: RADCTMAIN 13:09
PROVIDERS: ATTEND Obstetrics & Gynecology
DX: C55 Malignant neoplasm of uterus, part unspecified (principal); R19.09 Other intra-abdominal and pelvic swelling, mass and lump; K76.89 Other specified diseases of liver
CPT/HCPCS: 82565; 84520; 71260; 74177; 36415; Q9967 ×2